=== PATIENT | male | born 1940 | race Caucasian/White ===

== ENCOUNTER → 2018-06-02 11:54 | Outpatient (CLI) | payer MEDICARE, SELFPAY ==
--- NOTE | 2018-06-02 12:23 | RAD_ITS ---
STUDY: X-RAY CHEST REASON FOR EXAM: Male, 78 years old. Chronic shortness of breath. History of smoking. TECHNIQUE: PA and lateral views of the chest. COMPARISON: None. FINDINGS: Hyperinflation. Decreased bronchovascular markings in the right middle lobe and right lower lobe suggestive of a bullous changes. Possible 1.3 cm x 2.1 cm ill-defined nodular density projected over the left first costochondral junction. A repeat lordotic view is recommended. There is no demonstrated pleural abnormality. Normal size heart. Normal mediastinum and juan david. Normal visualized pulmonary arteries. There is atherosclerotic calcification of the aortic arch with tortuosity. There are diffuse degenerative changes of the visualized thoracic spine. Normal visualized ribs, clavicles, and shoulders. There is no demonstrated abnormality of the visualized soft tissue structures of the upper abdomen. RAD/Chest PA and Lateral IMPRESSION: Hyperinflation and emphysematous changes more prominent in the right middle lobe and right lower lobe. Possible nodular density in the left apex as described. A repeat lordotic view is recommended. Electronically Signed: Jose Gordon MD at 13:09 EST Tel [phone], Service support ,
[2018-06-02 15:31] LABS: Color, Urine Yellow (Yellow); Glucose, Dipstick Normal (Normal); Ketone-Dipstick Negative (Negative); Leukocyte Esterase-Dipstick 500 /ul (Negative); Nitrite-Dipstick Positive (Negative); Occult Blood-Urine 10 /ul (Negative); Protein-Dipstick Negative (Negative); Specific Gravity, Urine 1.005 (1.002-1.030); Urine Bilirubin Dipstick Negative (Negative); Urine Clarity Sl. Cloudy (Clear); Urine Urobilinogen Normal (Normal)
[2018-06-02 15:36] LABS: Mucous, Urine 0 SEEN /hpf (<or=2+); Red Blood Cells-Urine 0 SEEN /hpf (0-5); Squamous Epithelial Cells - UA 0 SEEN /hpf (0-5)
[2018-06-02 15:37] LABS: White Blood Cells 10-25 SEEN /hpf (0-5)
[2018-06-02 15:38] LABS: Bacteria 2+ /hpf (None Seen)
[2018-06-02 15:43] LABS: Absolute Lymphocyte Count 2.03 X10^3/ul (0.83-4.51); Absolute Neutrophil Count 6.5 X10^3/uL (2.0-7.7); Basophil# 0.05 X10^3/uL; Basophil% 0.5 % (0-1); Eosinophil# 0.23 X10^3/uL; Eosinophils% 2.4 % (0-5); Hematocrit 46.4 % (40-54); Hemoglobin 15.1 g/dl (13.0-16.5); Lymphocyte # 2.03 X10^3/ul (4.0); Lymphocyte % 21.2 % (19-41); Mean Corp Hgb Conc 32.5 g/gl (32-36); Mean Corpuscular Hgb 31.5 pg (27.0-32.0); Mean Corpuscular Volume 96.7 fL (80-94); Mean Platelet Vol. 11.1 fl (6.2-12.0); Monocyte# 0.69 X10^3/uL; Monocyte% 7.2 % (0-10); Neutrophil # 6.54 X10^3/uL (2.7-7.7); Neutrophil % 68.5 % (47-70); Platelet Count 299 K/mm3 (150-450); RBC Distribution Width CV 13.5 % (11.6-14.6); RBC Distribution Width SD 46.8 fl (35.1-43.9); White Blood Count 9.6 K/mm3 (4.4-11.0)
[2018-06-02 15:46] LABS: POSITIVE COUNT NO; POSITIVE DIFFERENTIAL NO; POSITIVE MORPHOLOGY NO
[2018-06-02 16:05] LABS: Vitamin B12 604 pg/mL (211-911); Vitamin D,25 Hydroxy 28.4 ng/mL (29.95-100.01)
[2018-06-02 16:09] LABS: ALB/GLOB Ratio 1.3 RATIO (0.9-2.4); AST(SGOT) 14 U/L (15-37); Alanine Aminotransfer ALT/SGPT 16 U/L (16-61); Albumin, Serum 4.1 g/dL (3.2-5.0); Alkaline Phosphatase 96 U/L (45-117); Anion Gap 9 (5-15); BUN 11 mg/dL (7-18); BUN/Creat Ratio 12.4 RATIO (10-20); Calcium,Total 8.8 mg/dL (8.5-10.1); Chloride 102 mmol/L (98-107); Creatinine, Serum 0.89 mg/dL (0.70-1.30); EST Glomerular Filtration Rate 88 mL/min (>60); Est Glom Filt Rate - Afr Amer 106 mL/min (>60); Globulin 3.1 g/dL (2.2-4.2); Glucose 83 mg/dL (74-106); Potassium 3.8 mmol/L (3.5-5.1); Protein, Total 7.2 g/dL (6.4-8.2); Sodium Level 142 mmol/L (136-145); Thyroid Stim Hormone (TSH) 2.64 uIU/mL (0.358-3.74)
[2018-06-02 16:21] LABS: BNP,B-Type NATRIURETIC PEPTIDE 15.5 pg/mL (0-100)
--- OUTSIDE RECORDS SUMMARY | 2018-07-28 15:17 | XMS RPT_ITS ---
:1940 External Reference #:[id number] Author Organization [facility] Care Team Providers Name Role Phone Ron Garcia Attending Unavailable Ron Garcia Referring Unavailable Ron Garcia Primary Care Unavailable Ron Garcia Attending Unavailable Ron Garcia Primary Care Unavailable Ron Garcia Referring Unavailable Ron Garcia Attending Unavailable Ron Garcia Referring Unavailable Ron Garcia Primary Care Unavailable PROBLEMS PROBLEMS DATE TYPE CONDITION / CODE ATTENDING STATUS SOURCE 06/21/2018 Unknown N39.0 - Urinary Ron Garcia Active Ron tract infection, Community site not Hospital specified / Repository N39.0(ICD-10) 06/21/2018 Unknown R06.09 - Other Ron Garcia Active Ron forms of dyspnea Community / R06.09(ICD-10) Hospital Repository PROCEDURES PROCEDURES No Procedure Records FoundRESULTS RESULTS CHEST WITHOUT Observed: 06/18/2018 Status: F Source: [place] CONTRAST 8:43 AM [facility] REPOSITORY [facility] Imaging Services [address] [place] [address] Chest without Contrast MR#: [id number] Acct: [id number] Name: DARRION BERG Rep #: [id number] : 1940 M 78 From: Alfredo Summers MD PCP: Ron Garcia MD Status: REG CLI Study: Chest without Contrast Date of Exam: 06/18/18 Exam# [id number] Ordering Dr: Ron Garcia MD STUDY: CT CHEST WITHOUT CONTRAST REASON FOR EXAM: Male, 78 years old. Lung nodule detected in the left apex on chest x-ray of 06/02/2018 RADIATION DOSAGE (If Supplied By Facility): CTDIvol = ( 11.37 ) mGy, DLP = ( 431.79 ) mGycm TECHNIQUE: Transaxial imaging was performed without the administration of intravenous contrast material. Multiplanar coronal and sagittal images were reformatted. Individualized dose optimization techniques were used for this CT. COMPARISON: 06/02/2018 FINDINGS: The 2.1 cm nodular density projecting in the left upper lung field on prior study correlates to degenerative costochondral sclerosis of the anterior first rib. Well-defined, round noncalcified nodule along the lateral left upper lobe on image 41 measures 4 mm. Triangular subpleural fibrotic reaction of the left anterior upper lobe on image 58 also demonstrated measuring 3 mm. There are mild fibrotic bands involving the bilateral lower lobes and right middle lobe. No airspace consolidation. No endobronchial lesions. There is no demonstrated pleural abnormality. Normal heart and pericardium. There are calcifications of the coronary arteries. Normal mediastinum. Normal hilar regions. Normal unenhanced pulmonary arteries. There is atherosclerotic calcification of the aortic arch with tortuosity and elongation of the aortic arch and descending thoracic aorta. Diffuse aneurysmal enlargement of the ascending thoracic aorta measures 4.4 x 4.3 cm. There are multi-level degenerative changes of the thoracic spine. There is no demonstrated abnormality of the visualized upper abdomen. CT/Chest without Contrast IMPRESSION: 1. Rib artifact/degenerative changes accounts for nodular density on prior chest x-ray in the left upper lobe. 2. 4 mm nodule in the lateral left upper lobe. Follow-up chest CT in one year recommended if no comparison studies are available to document long-term stability. 3. Aneurysmal enlargement of the ascending thoracic aorta measuring up to 4.4 cm in axial dimension. 4. Atherosclerosis including coronary arteries. Electronically Signed: Alfredo Summers MD at 9:19 EST , Service support , CC: Ron Garcia MD Store Operations Specialist: Signed POST VOID RESIDUAL Observed: 06/09/2018 Status: F Source: [place] BLADDER 7:55 AM [facility] REPOSITORY [facility] Imaging Services [address] [place] [address] Post Void Residual Bladder MR#: [id number] Acct: [id number] Name: DARRION BERG Rep #: [id number] : 1940 M 78 From: Bryce Wade MD PCP: Ron Garcia MD Status: REG CLI Study: Post Void Residual Bladder Date of Exam: 06/09/18 Exam# [id number] Ordering Dr: Ron Garcia MD STUDY: ULTRASOUND - URINARY BLADDER REASON FOR EXAM: Male, 78 years old. Incomplete emptying. TECHNIQUE: Ultrasound evaluation of the urinary bladder was performed with real-time and static arrington-scale imaging. COMPARISON: None. FINDINGS: There is no right UVJ calculus. There is a visualized right ureteral jet. There is no left UVJ calculus. There is a visualized left ureteral jet. The distended volume of the urinary bladder is 314.03 ml. The empty volume of the urinary bladder is 189.24 ml. The bladder wall is thickened with an irregular margin indicating internal trabeculation. The bladder wall measures 3 mm. There is no demonstrated bladder wall mass lesion. There are no demonstrated bladder calculi. US/Post Void Residual Bladder IMPRESSION: 1. Thickened, trabeculated bladder wall. 2. Incomplete bladder emptying with 189 mL postvoid residual. Electronically Signed: Donovan Wade MD at 19:47 EST , Service support , CC: Ron Garcia MD Store Operations Specialist: Signed CHEST PA AND LATERAL Observed: 06/02/2018 Status: F Source: [place] 12:23 PM [facility] REPOSITORY [facility] [place] [address] Chest PA and Lateral MR#: [id number] Acct: [id number] Name: DARRION BERG Rep #: [id number] : 1940 M 78 From: Jose Gordon MD PCP: Ron Garcia MD Status: REG CLI Study: Chest PA and Lateral Date of Exam: 06/02/18 Exam# [id number] Ordering Dr: Ron Garcia MD STUDY: X-RAY CHEST REASON FOR EXAM: Male, 78 years old. Chronic shortness of breath. History of smoking. TECHNIQUE: PA and lateral views of the chest. COMPARISON: None. FINDINGS: Hyperinflation. Decreased bronchovascular markings in the right middle lobe and right lower lobe suggestive of a bullous changes. Possible 1.3 cm x 2.1 cm ill-defined nodular density projected over the left first costochondral junction. A repeat lordotic view is recommended. There is no demonstrated pleural abnormality. Normal size heart. Normal mediastinum and juan david. Normal visualized pulmonary arteries. There is atherosclerotic calcification of the aortic arch with tortuosity. There are diffuse degenerative changes of the visualized thoracic spine. Normal visualized ribs, clavicles, and shoulders. There is no demonstrated abnormality of the visualized soft tissue structures of the upper abdomen. RAD/Chest PA and Lateral IMPRESSION: Hyperinflation and emphysematous changes more prominent in the right middle lobe and right lower lobe. Possible nodular density in the left apex as described. A repeat lordotic view is recommended. Electronically Signed: Jose Gordon MD at 13:09 EST Tel [phone], Service support , CC: Ron Garcia MD Store Operations Specialist: Signed URINALYSIS, COMPLETE Collected: 06/02/2018 Status: F Source: [place] 11:59 AM [facility] REPOSITORY Order Comment: How was Urine Obtained? [employer]UM[employer]ANT SUPERVISOR TO SPECIFY TYPE CODE TESTS RESULT OUT OF RANGE REFERENCE UNITS LAB L400.3000 Yellow COLOR Normal Yellow LAB L400.3050 Clear Normal CLARITY Sl. Cloudy LAB L400.3200 Normal mg/dl Normal GLUCOSE, UR Normal LAB L400.3300 Negative mg/dL Normal BILIRUBIN URINE Negative LAB L400.3400 Negative mg/dl Normal KETONE UR Negative LAB L400.3465 1.002-1.030 Normal SP.GR. DIPSTX 1.005 LAB L400.3550 5.0 - 8.0 pH UR Normal 7.0 LAB L400.3600 Negative mg/dl PROT Normal DIPSTX Negative LAB L400.3700 Normal mg/dl Normal UROBILI Normal LAB L400.3750 Negative High NITRITE UR Positive LAB L400.3780 Negative /ul High 10 OCCULT BLOOD-UR LAB L400.3800 Negative /ul High LEUK ESTERASE 500 LAB L400.4050 0-5 /hpf WBC Normal 10-25 SEEN LAB L400.4100 0-5 /hpf 0 Normal RBC-UA SEEN LAB L400.4150 0-5 /hpf SQUAM 0 Normal EPI SEEN LAB L400.4300 None Seen /hpf 2+ Normal BACTERIA LAB L400.4350 <or=2+ /hpf 0 Normal MUCUS, URINE SEEN Performed By: #### L400.0001, L100.0100, L503.0105, L506.1000, L500.4050, L501.9520, L501.9910 #### [facility] [address] [place], [address] CBC W/DIFF, AUTOMATED Collected: 06/02/2018 Status: F Source: [place] 11:59 AM [facility] REPOSITORY TYPE CODE TESTS RESULT OUT OF RANGE REFERENCE UNITS LAB L100.1000 4.4-11.0 K/mm3 Normal WBC 9.6 LAB L100.1200 4.6-6.2 M/mm3 Normal RBC 4.80 LAB L100.1300 13.0-16.5 g/dl Normal HGB 15.1 LAB L100.1400 40-54 % Normal HCT 46.4 LAB L100.1500 80-94 fL High MCV 96.7 LAB L100.1600 27.0-32.0 pg Normal MCH 31.5 LAB L100.1700 32-36 g/gl Normal MCHC 32.5 LAB L100.1810 11.6-14.6 % Normal RDW CV 13.5 LAB L100.1820 35.1-43.9 fl High RDW SD 46.8 LAB L100.1900 150-450 K/mm3 Normal PLT 299 LAB L100.2000 6.2-12.0 fl Normal MPV 11.1 LAB L100.2100 47-70 % Normal NEUT% 68.5 LAB L100.2200 19-41 % Normal LY% 21.2 LAB L100.2300 0-10 % Normal MONO% 7.2 LAB L100.2400 0-5 % Normal EO% 2.4 LAB L100.2500 0-1 % Normal BASO% 0.5 LAB L100.2550 0.0-0.9 % Normal IM GRAN % 0.200 Result Comment: IG% - Immature Granulocytes (promyelocytes, myelocytes and metamyelocytes) > 1% indicates that a LEFT SHIFT is Present. LAB L100.2620 2.0-7.7 X10 3/uL Normal Absolute Neut 6.5 LAB L100.2720 0.83-4.51 X10 3/ul Normal Absolute Lymph 2.03 Performed By: #### L400.0001, L100.0100, L503.0105, L506.1000, L500.4050, L501.9520, L501.9910 #### [facility] [address] [place], [address] VITAMIN B12 Collected: 06/02/2018 Status: F Source: [place] 11:59 AM [facility] REPOSITORY TYPE CODE TESTS RESULT OUT OF RANGE REFERENCE UNITS LAB L503.0105 211-911 pg/mL Normal Vitamin B12 604 Performed By: #### L400.0001, L100.0100, L503.0105, L506.1000, L500.4050, L501.9520, L501.9910 #### [facility] [address] [place], [address] VITAMIN D,25 HYDROXY Collected: 06/02/2018 Status: F Source: [place] 11:59 AM [facility] REPOSITORY TYPE CODE TESTS RESULT OUT OF REFERENCE UNITS RANGE LAB L506.1000 29.95-100.01 ng/mL Low Vitamin D 28.4 25-OH Result Comment: Vitamin D 25(OH) Status Range Deficiency <20 ng/mL (50nmol/L) Insuffciency 20 - 30 ng/mL (50 - 75 nmol/L) Sufficiency 30 - 100 ng/mL (75 - 250 nmol/L) Toxicity >100 ng/mL (>250 nmol/L) Performed By: #### L400.0001, L100.0100, L503.0105, L506.1000, L500.4050, L501.9520, L501.9910 #### [facility] [address] [place], [address] COMPREHENSIVE METABOLIC Collected: 06/02/2018 Status: F Source: RON [facility] 11:59 AM [facility] REPOSITORY TYPE CODE TESTS RESULT OUT OF RANGE REFERENCE UNITS LAB L501.0100 74-106 mg/dL Normal GLU 83 Result Comment: Please note revised GLUCOSE reference range effective 2017. LAB L501.1000 7-18 mg/dL Normal BUN 11 LAB L501.1100 0.70-1.30 mg/dL Normal CREAT,SERUM 0.89 Result Comment: The validity of the calculated GFR AND GFRAA in patients over 70 years has not been determined. Clinical correlation is essential. LAB L501.1110 >60 mL/min Normal EST GFR 88 Result Comment: Non- GFR Calc LAB L501.1115 >60 mL/min Normal EST GFR - AA 106 Result Comment: GFR Calc LAB L501.1300 10-20 RATIO Normal BUN/CRE 12.4 LAB L501.1500 6.4-8.2 g/dL T Normal PROT 7.2 LAB L501.1800 3.2-5.0 g/dL Normal ALB 4.1 LAB L501.1950 2.2-4.2 g/dL Normal GLOB 3.1 LAB L501.2000 0.9-2.4 RATIO Normal A/G 1.3 LAB L501.2200 8.5-10.1 mg/dL CA Normal 8.8 LAB L501.4100 15-37 U/L Low AST 14 LAB L501.4305 45-117 U/L Normal ALK P 96 LAB L501.4405 16-61 U/L Normal ALT 16 LAB L501.4600 0.20-1.00 mg/dL T Normal BILI 0.50 LAB L501.5300 136-145 mmol/L NA Normal 142 LAB L501.5600 3.5-5.1 mmol/L K Normal 3.8 LAB L501.5900 98-107 mmol/L CL Normal 102 LAB L501.6100 21.0-32.0 mmol/L Normal CO2 31.0 LAB L501.6200 5-15 Normal GAP 9 Performed By: #### L400.0001, L100.0100, L503.0105, L506.1000, L500.4050, L501.9520, L501.9910 #### [facility] [address] [facility] [place], [address] THYROID STIM HORMONE Collected: 06/02/2018 Status: F Source: [place] ([facility]) 11:59 AM [facility] REPOSITORY TYPE CODE TESTS RESULT OUT OF RANGE REFERENCE UNITS LAB L501.9520 0.358-3.74 uIU/mL Normal TSH 2.64 Performed By: #### L400.0001, L100.0100, L503.0105, L506.1000, L500.4050, L501.9520, L501.9910 #### [facility] [address] [facility] [place], [place], [address] PSA,TOTAL - ANNUAL Collected: 06/02/2018 Status: F Source: [place] SCREEN 11:59 AM [facility] REPOSITORY TYPE CODE TESTS RESULT OUT OF RANGE REFERENCE UNITS LAB L501.9910 0.00-4.00 ng/mL Normal PSA,TOT 1.60 SCREEN Result Comment: This test was performed using the TPSA assay method for the [employer] chemistry system. Values obtained with different assay methods cannot be used interchangably. When changing PSA assays in the course of monitoring a patient, additional sequential testing should be carried out to confirm baseline values. Performed By: #### L400.0001, L100.0100, L503.0105, L506.1000, L500.4050, L501.9520, L501.9910 #### [facility] [address] [place], [address] BNP,B-TYPE NATRIURETIC Collected: 06/02/2018 Status: F Source: [place] PEPTIDE 11:59 AM [facility] REPOSITORY TYPE CODE TESTS RESULT OUT OF RANGE REFERENCE UNITS LAB L503.6620 0-100 pg/mL Normal B-TYPE 15.5 DANIEL PEP Performed By: #### L503.6620 #### [facility] [address] [facility] [place], [address] Observed: 06/02/2018 Status: F Source: [place] CULTURE, URINE 11:59 AM [facility] REPOSITORY Urine Culture ORGANISM 1: Presumptive E. coli Sunset Count >100,000 Presumptive E. coli: REACTION Amoxacillin/Clavulanic Acid $ <=2 S Ampicillin $ <=2 S Ampicillin/Sulbactam $ <=2 S Cefazolin $ <=4 S Cefepime $ <=1 S Ceftriaxone $ <=1 S Ciprofloxacin $ <=0.25 S ESBL - Ertapenim $$$ <=0.5 S Gentamicin $ <=1 S Imipenem *NF <=0.25 S Levofloxacin $ <=0.12 S Nitrofurantoin $ <=16 S Piperacillin/Tazobactam $$ <=4 S Tobramycin $ <=1 S Trimethoprim/Sulfametho $ <=20 S (NF) indicates non-formulary drug at [facility]. Approval by Infectious Disease Specialist required before non-formulary drugs may be ordered and/or dispensed. Performed By: #### M100.0650 #### [facility] [address], [address] ALLERGIES ALLERGIES No Allergies Records FoundENCOUNTERS ENCOUNTERS ADMIT/DISCHARGE ACCOUNT ADMITTING ENCOUNTER LOCATION SOURCE NUMBER CLASS 06/18/2018 [id number] Ambulatory [address] ing:CT Repository 06/09/2018 [id number] Ambulatory [place] [facility] ing:[place] Repository 06/02/2018 [id number] Ambulatory [place] Ron [facility] ing:MFPLAB Repository PAYERS PAYERS ENCOUNTER GUARANTOR PAYER SUBSCRIBER SOURCE 06/18/2018 DARRION Darrion [id number] Primary DARRION G LOWEDOB: [place] Insurance:HUMANA [id number] [facility] [address]Tel: [phone]) Number: Repository [phone] () [id number] Date:[id number] [address] [address]WN: 06/18/2018 Secondary NOT GIVENUNK [place] Insurance:SELF PAY [facility] Number: Effective Repository Date:2018-06-13 06/09/2018 DARRION G [id number] Primary DARRION G LOWEDOB: [place] Insurance:HUMANA [id number] [place] [facility] [address]Tel: [phone]) Number: Repository [phone] () [id number] Date:[id number] [address] [address]VC: 06/09/2018 Secondary NOT GIVENUNK [place] Insurance:SELF PAY [facility] Number: Effective Repository Date:2018-06-03 06/02/2018 DARRION G [id number] Primary DARRION G LOWEDOB: [place] Insurance:HUMANA [id number] [place] [facility] [address]Tel: [phone]) Number: Repository [phone] () [id number] Date:[id number] [address] [address]LI: 06/02/2018 Secondary NOT GIVENUNK [place] Insurance:SELF PAY [facility] Number: Effective Repository Date:2018-06-02
== END ==
PROVIDERS: Family Provider Family Medicine; PCP Family Medicine; Referring Provider Family Medicine; Visit Provider Family Medicine
DX: N39.0 Urinary tract infection, site not specified (principal); R06.09 Other forms of dyspnea; N40.1 Benign prostatic hyperplasia with lower urinary tract symptoms; R53.83 Other fatigue; Z12.5 Encounter for screening for malignant neoplasm of prostate; R06.02 Shortness of breath; E55.9 Vitamin D deficiency, unspecified
CPT/HCPCS: 71046; 80053; 81001; 82306; 82607; 83880; 84153; 84443; 85025; 87086; 87088; 87186; G0103

== ENCOUNTER → 2018-06-09 07:52 | Outpatient (CLI) | payer MEDICARE, SELFPAY ==
--- NOTE | 2018-06-09 07:55 | US_ITS ---
STUDY: ULTRASOUND - URINARY BLADDER REASON FOR EXAM: Male, 78 years old. Incomplete emptying. TECHNIQUE: Ultrasound evaluation of the urinary bladder was performed with real-time and static arrington-scale imaging. COMPARISON: None. FINDINGS: There is no right UVJ calculus. There is a visualized right ureteral jet. There is no left UVJ calculus. There is a visualized left ureteral jet. The distended volume of the urinary bladder is 314.03 ml. The empty volume of the urinary bladder is 189.24 ml. The bladder wall is thickened with an irregular margin indicating internal trabeculation. The bladder wall measures 3 mm. There is no demonstrated bladder wall mass lesion. There are no demonstrated bladder calculi. US/Post Void Residual Bladder IMPRESSION: 1. Thickened, trabeculated bladder wall. 2. Incomplete bladder emptying with 189 mL postvoid residual. Electronically Signed: Donovan Wade MD at 19:47 EST , Service support ,
== END ==
PROVIDERS: Family Provider Family Medicine; PCP Family Medicine; Referring Provider Family Medicine; Visit Provider Family Medicine
DX: R33.9 Retention of urine, unspecified (principal)
CPT/HCPCS: 51798

== ENCOUNTER → 2018-06-18 08:33 | Outpatient (CLI) | payer MEDICARE, SELFPAY ==
--- NOTE | 2018-06-18 08:43 | CT_ITS ---
STUDY: CT CHEST WITHOUT CONTRAST REASON FOR EXAM: Male, 78 years old. Lung nodule detected in the left apex on chest x-ray of 06/02/2018 RADIATION DOSAGE (If Supplied By Facility): CTDIvol = ( 11.37 ) mGy, DLP = ( 431.79 ) mGycm TECHNIQUE: Transaxial imaging was performed without the administration of intravenous contrast material. Multiplanar coronal and sagittal images were reformatted. Individualized dose optimization techniques were used for this CT. COMPARISON: 06/02/2018 FINDINGS: The 2.1 cm nodular density projecting in the left upper lung field on prior study correlates to degenerative costochondral sclerosis of the anterior first rib. Well-defined, round noncalcified nodule along the lateral left upper lobe on image 41 measures 4 mm. Triangular subpleural fibrotic reaction of the left anterior upper lobe on image 58 also demonstrated measuring 3 mm. There are mild fibrotic bands involving the bilateral lower lobes and right middle lobe. No airspace consolidation. No endobronchial lesions. There is no demonstrated pleural abnormality. Normal heart and pericardium. There are calcifications of the coronary arteries. Normal mediastinum. Normal hilar regions. Normal unenhanced pulmonary arteries. There is atherosclerotic calcification of the aortic arch with tortuosity and elongation of the aortic arch and descending thoracic aorta. Diffuse aneurysmal enlargement of the ascending thoracic aorta measures 4.4 x 4.3 cm. There are multi-level degenerative changes of the thoracic spine. There is no demonstrated abnormality of the visualized upper abdomen. CT/Chest without Contrast IMPRESSION: 1. Rib artifact/degenerative changes accounts for nodular density on prior chest x-ray in the left upper lobe. 2. 4 mm nodule in the lateral left upper lobe. Follow-up chest CT in one year recommended if no comparison studies are available to document long-term stability. 3. Aneurysmal enlargement of the ascending thoracic aorta measuring up to 4.4 cm in axial dimension. 4. Atherosclerosis including coronary arteries. Electronically Signed: Alfredo Summers MD at 9:19 EST , Service support ,
--- OUTSIDE RECORDS SUMMARY | 2018-09-21 08:57 | XMS RPT_ITS ---
[...] Status: F Source: RON CONTRAST 8:43 AM [facility] [address] [place] [address] Chest without Contrast MR#: [id number] Acct: [id number] Name: DARRION BERG Rep #: [id number] : 1940 M 78 From: Alfredo Sumemrs MD PCP: Ron Garcia MD Status: REG CLI Study: Chest without Contrast Date of Exam: 06/18/18 Exam# [id number] Ordering Dr: Ron Garcia MD STUDY: CT [...] Service support , CC: Ron Garcia MD Pickling Operator: Signed POST VOID RESIDUAL Observed: 06/09/2018 Status: F Source: RON BLADDER 7:55 AM [facility] [address] [place] [address] Post Void Residual Bladder MR#: [id number] Acct: [id number] Name: DARRION BERG Rep #: [id number] : 1940 M 78 From: Bryce Wade MD PCP: Ron Garcia MD Status: REG CLI Study: Post Void Residual Bladder Date of Exam: 06/09/18 Exam# [id number] Ordering Dr: Ron Garcia MD STUDY: ULTRASOUND [...] Service support , CC: Ron Garcia MD Pickling Operator: Signed CHEST PA AND LATERAL Observed: 06/02/2018 Status: F Source: [place] 12:23 PM [facility] [place] [address] Chest PA and Lateral MR#: [id number] Acct: [id number] Name: DARRION BERG Rep #: [id number] : 1940 M 78 From: Jose Gordon MD PCP: Ron Garcia MD Status: REG CLI Study: Chest PA and Lateral Date of Exam: 06/02/18 Exam# [id number] Ordering Dr: Ron Garcia MD STUDY: X-RAY [...] Jose Gordon MD at 13:09 EST Tel [phone], Service support , CC: Rno Garcia MD Pickling Operator: Signed URINALYSIS, COMPLETE Collected: 06/02/2018 Status: F Source: [place] 11:59 AM [facility] Order Comment: How was Urine Obtained? DUST HANDLER TO SPECIFY TYPE CODE TESTS RESULT OUT [...] L100.0100, L503.0105, L506.1000, L500.4050, L501.9520, L501.9910 #### [facility] [address] [place], [address] CBC W/DIFF, AUTOMATED Collected: 06/02/2018 Status: F Source: [place] 11:59 AM [facility] TYPE CODE TESTS RESULT OUT OF [...] L100.0100, L503.0105, L506.1000, L500.4050, L501.9520, L501.9910 #### [facility] [address] [place], [address] VITAMIN B12 Collected: 06/02/2018 Status: F Source: [place] 11:59 AM [facility] TYPE CODE TESTS RESULT OUT OF RANGE REFERENCE UNITS LAB L503.0105 211-911 pg/mL Normal Vitamin B12 604 Performed By: #### L400.0001, L100.0100, L503.0105, L506.1000, L500.4050, L501.9520, L501.9910 #### [facility] [address] [place], [address] VITAMIN D,25 HYDROXY Collected: 06/02/2018 Status: F Source: [place] 11:59 AM [facility] TYPE CODE TESTS RESULT OUT OF [...] L100.0100, L503.0105, L506.1000, L500.4050, L501.9520, L501.9910 #### [facility] [address] [place], [address] COMPREHENSIVE METABOLIC Collected: 06/02/2018 Status: F Source: RON [facility] 11:59 AM [facility] TYPE CODE TESTS RESULT OUT OF [...] L100.0100, L503.0105, L506.1000, L500.4050, L501.9520, L501.9910 #### [facility] [address] [place], [address] THYROID STIM HORMONE Collected: 06/02/2018 Status: F Source: [place] (TSH) 11:59 AM [facility] TYPE CODE TESTS RESULT OUT OF RANGE REFERENCE UNITS LAB L501.9520 0.358-3.74 uIU/mL Normal TSH 2.64 Performed By: #### L400.0001, L100.0100, L503.0105, L506.1000, L500.4050, L501.9520, L501.9910 #### [facility] [address] [facility] [place], [place], [address] PSA,TOTAL - ANNUAL Collected: 06/02/2018 Status: F Source: [place] SCREEN 11:59 AM [facility] TYPE CODE TESTS RESULT OUT OF RANGE REFERENCE UNITS LAB L501.9910 0.00-4.00 ng/mL Normal PSA,TOT 1.60 SCREEN Result Comment: This test was performed using the TPSA assay method for the streamOnce chemistry system. Values obtained with different assay methods cannot be used interchangably. When changing PSA assays in the course of monitoring a patient, additional sequential testing should be carried out to confirm baseline values. Performed By: #### L400.0001, L100.0100, L503.0105, L506.1000, L500.4050, L501.9520, L501.9910 #### [facility] [address] [place], [address] BNP,B-TYPE NATRIURETIC Collected: 06/02/2018 Status: F Source: [place] PEPTIDE 11:59 AM [facility] TYPE CODE TESTS RESULT OUT OF RANGE REFERENCE UNITS LAB L503.6620 0-100 pg/mL Normal B-TYPE 15.5 [place] PEP Performed By: #### L503.6620 #### [facility] [address] [place], [address] Observed: 06/02/2018 Status: F Source: [place] CULTURE, URINE 11:59 AM [facility] Urine Culture ORGANISM 1: Presumptive E. coli [place] Count >100,000 Presumptive E. coli: REACTION Amoxacillin/Clavulanic [...] <=20 S (NF) indicates non-formulary drug at [facility]. Approval by Infectious Disease Specialist required before non-formulary drugs may be ordered and/or dispensed. Performed By: #### M100.0650 #### [facility] [address] [place], [address] ALLERGIES ALLERGIES No Allergies Records FoundENCOUNTERS ENCOUNTERS ADMIT/DISCHARGE ACCOUNT ADMITTING ENCOUNTER LOCATION SOURCE NUMBER CLASS 06/18/2018 [id number] Ambulatory [address] ing:CT Repository 06/09/2018 [id number] Ambulatory Ron Ron [facility] ing:[place] Repository 06/02/2018 [id number] Ambulatory [place] [facility] ing:MFPLAB Repository PAYERS PAYERS ENCOUNTER GUARANTOR PAYER SUBSCRIBER SOURCE 06/18/2018 DARRION Darrion [id number] Primary DARRION G LOWEDOB: Ron [place] Insurance:[employer] [id number] [place] [facility] [address]Tel: [phone]) Number: Repository [phone] () [id number] Date:2826-05-72BK [address] [address]OW: 06/18/2018 Secondary NOT GIVENUNK Ron Insurance:SELF PAY [facility] Number: Effective Repository Date:2018-06-13 06/09/2018 DARRION G [id number] Primary DARRION G LOWEDOB: Ron [place] Insurance:HUMANA [id number] [place] [facility] [address]Tel: [phone]) Number: Repository [phone] () [id number] Date:6640-80-17QP [address] [address]VL: 06/09/2018 Secondary NOT GIVENUNK [place] Insurance:SELF PAY [facility] Number: Effective Repository Date:2018-06-03 06/02/2018 DARRION G [id number] Primary DARRION G LOWEDOB: [place] Insurance:HUMANA [id number] [place] [facility] [address]Tel: [phone]) Number: Repository [phone] () [id number] Date:5631-19-50RX [address] [address]ZQ: 06/02/2018 Secondary NOT GIVENUNK [place] Insurance:SELF PAY [facility] Number: Effective Repository Date:2018-06-02
== END ==
PROVIDERS: Family Provider Family Medicine; PCP Family Medicine; Referring Provider Family Medicine; Visit Provider Family Medicine
DX: R91.1 Solitary pulmonary nodule (principal); I71.2 Thoracic aortic aneurysm, without rupture; I25.10 Atherosclerotic heart disease of native coronary artery without angina pectoris
CPT/HCPCS: 71250

== ENCOUNTER → 2018-10-03 11:46 | Outpatient (CLI) | payer MEDICARE, SELFPAY ==
--- NOTE | 2018-10-03 11:50 | US_ITS ---
STUDY: RENAL ULTRASOUND - COMPLETE REASON FOR EXAM: Male, 78 years old. Urinary retention. TECHNIQUE: Ultrasound evaluation of the kidneys was performed with real-time and static romero-scale imaging. COMPARISON: None. FINDINGS: RIGHT KIDNEY: Normal location of the right kidney, which is normal in size. The right kidney measures 10.2 cm x 5.3 cm x 3.7 cm. There is a normal cortex of the right kidney. The renal cortex measures 1.5 cm. There is no right renal mass or cyst. There are no right renal calculi. There is no right hydronephrosis. DISTAL RIGHT URETER: There is non-visualization of the distal right ureter. There is no demonstrated right ureterovesical junction calculus. There is a visualized right ureteral jet. LEFT KIDNEY: Normal location of the left kidney, which is normal in size. The left kidney measures 10.5 cm x 4.2 cm x 5.6 cm. There is a normal cortex of the left kidney. The renal cortex measures 1.4 cm. There is no left renal mass or cyst. There are no left renal calculi. There is no left hydronephrosis. DISTAL LEFT URETER: There is non-visualization of the distal left ureter. There is no demonstrated left ureterovesical junction calculus. There is a visualized left ureteral jet. BLADDER: The distended urinary bladder has a volume of 607 ml. The empty urinary bladder has a volume of 247 ml. There is a normal wall thickness of the distended urinary bladder. There is no demonstrated mass within the urinary bladder. There are no demonstrated bladder calculi. US/Kidney and Bladder IMPRESSION: Normal ultrasound of the kidneys. Moderate post void residual. Electronically Signed: Jose Gordon, at 9:53 EDT , Service support ,
== END ==
PROVIDERS: Family Provider Family Medicine; PCP Family Medicine; Referring Provider Family Medicine; Visit Provider Family Medicine
DX: R33.9 Retention of urine, unspecified (principal)
CPT/HCPCS: 76770

== ENCOUNTER → 2018-10-05 08:39 | Outpatient (CLI) | payer MEDICARE, SELFPAY ==
[2018-10-05 10:19] LABS: Vitamin D,25 Hydroxy 54.8 ng/mL (29.95-100.01)
== END ==
PROVIDERS: Family Provider Family Medicine; PCP Family Medicine; Referring Provider Family Medicine; Visit Provider Family Medicine
DX: E55.9 Vitamin D deficiency, unspecified (principal)
CPT/HCPCS: 36415; 82306

== ENCOUNTER → 2018-11-30 10:12 | Outpatient (CLI) | payer MEDICARE, SELFPAY ==
[2018-11-30 13:19] LABS: Anion Gap 6 (5-15); BUN 12 mg/dL (7-18); BUN/Creat Ratio 12.2 RATIO (10-20); CPK Total, Creatine Kinase 80 U/L (39-308); Calcium,Total 8.7 mg/dL (8.5-10.1); Chloride 106 mmol/L (98-107); Creatinine, Serum 0.98 mg/dL (0.70-1.30); EST Glomerular Filtration Rate 78 mL/min (>60); Est Glom Filt Rate - Afr Amer 95 mL/min (>60); Ferritin 103 ng/mL (26-388); Glucose 89 mg/dL (74-106); Magnesium 1.9 mg/dL (1.6-2.6); Potassium 4.2 mmol/L (3.5-5.1); Sodium Level 143 mmol/L (136-145)
== END ==
PROVIDERS: Family Provider Family Medicine; PCP Family Medicine; Referring Provider Family Medicine; Visit Provider Family Medicine
DX: R25.2 Cramp and spasm (principal)
CPT/HCPCS: 36415; 80048; 82550; 82728; 83735

== ENCOUNTER → 2018-12-21 07:11 | Outpatient (CLI) | payer MEDICARE, SELFPAY ==
--- NOTE | 2018-12-21 07:17 | CT_ITS ---
STUDY: CT CHEST WITHOUT CONTRAST REASON FOR EXAM: Male, 78 years old. Follow-up of lung nodule RADIATION DOSAGE (If Supplied By Facility): CTDIvol = ( 11.94 ) mGy, DLP = ( 441.43 ) mGycm TECHNIQUE: Transaxial imaging was performed without the administration of intravenous contrast material. Individualized dose optimization techniques were used for this CT. COMPARISON: Previous study of 06/18/2018 FINDINGS: There are mild emphysematous changes of the upper lobes. There is a stable 4 mm nodule of the lateral left upper lobe image 39 series 301. There are linear fibrotic changes of the lower lobes and right middle lobe. There is no demonstrated pleural abnormality. Normal heart and pericardium. Normal mediastinum. Hilar areas are difficult to assess on this noncontrast study. There is no obvious hilar mass or adenopathy. Normal unenhanced pulmonary arteries. The ascending thoracic aorta is mildly aneurysmal, measuring up to 4.2 cm in diameter. The thoracic aorta at the level of the aortic root measures 3.9 cm in diameter. There is mild endplate spondylosis of the thoracic spine. There is no demonstrated abnormality of the visualized upper abdomen. CT/Chest without Contrast IMPRESSION: Aneurysmal dilatation of the ascending thoracic aorta measuring up to 4.2 cm. Mild emphysematous changes of the upper lobes. Stable 4 mm nodule of the lateral left upper lobe. Linear fibrotic changes of the lower lobes and right middle lobe. Electronically Signed: Sly Mohan MD at 17:19 EDT , Service support ,
== END ==
PROVIDERS: Family Provider Family Medicine; PCP Family Medicine; Referring Provider Family Medicine; Visit Provider Family Medicine
DX: R91.1 Solitary pulmonary nodule (principal)
CPT/HCPCS: 71250

== ENCOUNTER → 2018-12-29 14:16 | Outpatient (CLI) | payer MEDICARE, SELFPAY ==
--- NOTE | 2018-12-29 14:21 | VDLE_ITS ---
Reason For Study: edema RIGHT LEFT GSV is normal. GSV is normal. CFV is compressible, spontaneous, phasic, CFV is compressible, spontaneous, phasic, competent and demonstrates normal competent, and demonstrates normal augmentation. augmentation. FV is compressible, spontaneous, phasic, FV is compressible, spontaneous, phasic, competent and demonstrates normal competent and demonstrates normal augmentation. augmentation. POP V is compressible, spontaneous, phasic, POP V is compressible, spontaneous, phasic, competent and demonstrates normal competent and demonstrates normal augmentation. augmentation. T/P Trunk is compressible. T/P Trunk is compressible. PTV is compressible. PTV is compressible. RT PerV is compressible. LT PerV is compressible. Procedure Exam performed in department. The exam was diagnostic. A preliminary report was called and/or faxed to Dr. Garcia. Interpretation Summary Deep veins of the lower extremities are bilaterally patent and compressible segmentally. There is no evidence of deep vein thrombosis on either side. Valvular competence appears intact within the proximal deep venous systems bilaterally. The greater saphenous veins appear bilaterally patent and compressible segmentally. Ordering Physician: Ron Garcia Performed By: Zach Cano RVT
== END ==
PROVIDERS: Family Provider Family Medicine; PCP Family Medicine; Referring Provider Family Medicine; Visit Provider Family Medicine
DX: R60.0 Localized edema (principal)
CPT/HCPCS: 93970

== ENCOUNTER → 2019-02-08 | Outpatient (CLI) | payer MEDICARE, SELFPAY ==
--- NOTE | 2019-02-08 13:15 | PR.HP_ITS ---
History of Present Illness Arrival date:: 02/08/19 Arrival time:: 12:55 Date of Referral:: 01/20/19 Date of Evaluation: 02/08/19 Referring Physician: DR MAUREEN AHUJA Primary Diagnosis: COPD GOLD III History of Present Illness: Pt was diagnosed with COPD in 2017. He was placed on oxygen about 6 months ago d/t hypoxia. 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 mMRC Breathless Scale: When is the patient short of breath? Y/N Grade: Description of Breathlessness: n 0 I only get breathless with strenuous exercise. y 1 I get short of breath when hurrying on level ground or walking up a slight hill. y 2 On level ground, I walk slower than people of the same age because of breathless, or have to stop for breath when walking at my own pace. y 3 I stop for breath after walking 100 yards or after a few minutes on level ground. n 4 I am too breathless to leave the house or I am breathless when dressing. Respiratory Problems: Yes: Dizziness, Ankle Swelling, Dyspnea with Activity - Secretions Normal Color:: yellow Thick:: Yes Amount/Day:: once every 2 weeks Cough:: No AM: No PM: No Night Time: No A.T.C.: No Hx of Sleep Apnea: No Do you snore loudly (louder than talking or can be heard through closed doors)?: Yes Do you often feel tired/ fatigued/ sleepy during daytime?: No Has anyone observed you stop breathing during sleep?: No History of Hypertension (for STOP score): No STOP Results: Negative Medical Utilization Do you use a spacer device with your inhalers?: No Number of hospital visits in the last year?: 0 Number of emergency room visits in the last year?: 0 Do you see your physician on a regular schedule?: Yes How often?: every 3 months Advanced Directives - Advanced Directives Power of Medical Technologist Prn: No Living Will: No Advance Directives Information Provided: No Advance Directives on File: No DNR Order?:: No - MOLST See MOLST form: No Past Medical History Medical History: Past Medical History (Last Updated 02/08/19 @ 15:12 by Eliza Frausto, BUSINESS SUPPORT LIAISON) Allergic rhinitis J30.9 BPH w urinary obs/LUTS N40.1, N13.8 History of tobacco use Z87.891 Lung nodule < 6cm on CT R91.1 Thoracic aneurysm without mention of rupture I71.2 Vitamin D deficiency E55.9 COPD (chronic obstructive pulmonary disease) J44.9 Surgical History: Past Surgical History (Last Updated 02/08/19 @ 14:14 by Eliza Frausto, BERRY) Hx of appendectomy Z90.49 Family History: Family History (Last Updated 02/08/19 @ 14:14 by Eliza Frausto, BERRY) Father Emphysema lung Mother old age - Current/ Previous Services Pulmonary Rehab:: No Social History - Smoking History Smoking Status: Former smoker Years Smokin Packs Smoked per Day: 1.5 Hx Smoking Cessation Date: 2014 Hx Tobacco Use: Yes Hx Smoking Exposure: Yes - Alcohol Use Alcohol Usage: Yes - rarely - Substance Abuse Hx Substance Use: No - Occupation Occupation (List type of work in comments):: Retired - Hobbies, Recreation, Social Activities Hobbies: None Functioning ADL/IADL - Current Ability Current Ability: Independent Self-Care (e.g.,grooming, dressing, & bathing), Independent Ambulation, Independent Transfer, Independent Household tasks (e.g., light meal prep, laundry, shopping) - Pt Functioning Prior to Problem Prior Functioning: Self-Care (e.g.,grooming, dressing, & bathing): Independent, Ambulation: Independent, Transfer: Independent, Household tasks (e.g., light meal prep, laundry, shopping): Independent Social Environment - Status Marital Status: - Current Living Arrangements Living Environment:: Spouse - Children How many children do you have?: 3 Do any of your children live nearby?: Yes - Safety Do you feel safe in your surroundings?: Yes - Assistance Do you need any assistance at home?: no Review of Systems Review of Systems: Right click = Denies (Slash). Left click = Reports ([place]) Respiratory: Reports: SOB upon Exertion, Dizziness/Lightheadedness, Sleep, Normal Is Patient Pain Free?: Yes Pain Level: 0/10 Previous experience dealing with pain?: yes Risk Factor Assessment - Vital Signs Pulse Rate: 69 Pulse Rhythm: Regular Respiratory Rate: 18 Pulse Ox: 95 - on 2lpm O2 via NC Blood Pressure: 128/68 Nailbeds:: pink - Diabetes Nutrition Referral for Diabetes: No - Obesity Height: 1.73 m Weight:: 78.925 kg Weight in Pounds: 174.0 lbs Weight Source: Stated by Patient Body Mass Index (BMI): 26.4 Nutritional Referral for Obesity: No - Physical Activity Physical Inactivity: Recreational activity - Risk Stratification Risk Guidelines: Lowest Risk: Risk Factor for Smoking, Risk Factor for Dyslipidemia, Risk Factor for Diabetes, Risk Factor for Hypertension, Risk Factor for Depression, Moderate Risk: Risk Factor for Obesity, Risk Factor for Sedentary Lifestyle - For Smoking Smoking Risk Guidelines: Smoking Low Risk: None or quit greater than 6 months ago. Smoking Moderate Risk: Smoker or quit 6 months or less ago. Smoking High Risk: Smoker - For Dyslipidemia Dyslipidemia Risk Guidelines: Low Risk: Moderate Risk: High Risk: 15-25% fat 25.1-29% fat >/= 30% fat. <7% sat fat 7-9% sat fat >9% sat fat. <150 mg chol 150-299 mg chol >/= 300 mg chol. LDL <100 LDL 100-129 LDL >/= 130. Chol/HDL ratio <5.0 Chol/HDL ratio 5.0-6.0 Chol/HDL ratio >6.0. Triglycerides <100 Triglycerides 100-149 Triglycerides >/= 150 - For Diabetes Mellitus Diabetes Risk Guidelines: Diabetes Low Risk: HgA1c <6.5% and/or FBG <120. Diabetes Moderate Risk: HgA1c 6.6-7.9% and/or FBG 120-180. Diabetes High Risk: HgA1c >/= 8% and/or FBG >180 - For Obesity/Overweight Obesity/Overweight Risk Guidelines: Obesity Low Risk: BMI <25.0. Obesity Moderate Risk: BMI 25-29.9. Obesity High Risk: BMI >/= 30.0 - For Hypertension Hypertension Risk Guidelines: Hypertension Low Risk: Systolic <120 and Diastolic <80. Hypertension Moderate Risk: Systolic 120-139 and Diastolic 80-89. Hypertension High Risk: Systolic >/= 140 and Diastolic >/= 90 - For Sedentary Lifestyle Sedentary Lifestyle Risk Guidelines: Sedentary Lifestyle Low Risk: >/= 1,500 kcal/week. Sedentary Lifestyle Moderate Risk: 700-1,499 kcal/week. Sedentary Lifestyle High Risk: < 700 kcal/week - For Depression Depression Risk Guidelines: Depression Low Risk: Not clinically depressed. Depression Moderate Risk: Mildly depressed. Depression High Risk: Clinically depressed Motivation - Motivation to Participate On a scale of 1 to 10, how prepared are you to commit to attending program?: 8 What do you see as barriers to successfully being able to complete the program?: none What do you see as the benefits of succesfully completing the program? In other words, what do you hope to get out of participating in the program?: breathing better, increased stamina Are there issues you are dealing with that will interfere with completing the program?: none Do you have a spouse or signficant other, family or friends who will help support you to complete the program?: yes Diagnostic Data Review - Pulmonary Function Test FEV1:: 38 FVC:: 63 FEV1/FVC%:: 39 Gold Classification: GOLD class II(mod. COPD)with FEV1/FVC <70%, 50%</= FEV1< 50% predicted
--- NOTE | 2019-02-08 13:39 | PR.ITP_ITS ---
General Information - General Information Admitting Diagnosis: COPD Gold Classification:: GOLD 2: Moderate Special Needs: NONE Oxygen: 2lpm ATC - PFT FEV1:: 38 FVC:: 2.42 FEV1/FVC%:: 39 - Education/Goals Barriers to Learning: None Individual Counseling: Initial Assessment: Dyspnea control techniques at rest, activity, and ADLs, Inhaled and respiratory medications, Exacerbation prevention & management, O2, Rx, system, safety, ADL management and pacing, Panic & depression management, Nutrition & weight management, Smoking cessation, Home exercise plan & guidelines, Intimacy, Safe travel, Advanced directives Patient Goals: Breathe better: Initial Assessment, Increase endurance/stamina: Initial Assessment, Improve diet and nutrition: Initial Assessment, Symptom management: Initial Assessment, Improve weight: Initial Assessment Exercise - Initial Assessment - Visit Date of Eval: 02/08/19 - Problem/Goals Problems: No regular exercise Goals:: Aerobic exercise 30-60 mins x 9 weeks, OR: 2-3/wk, Resistance: 2- 3x/weekly - Physician Prescribed Exercise Modalities: Treadmill, NuStep, SciFit Frequency (days/week): 3 Duration (Minutes):: 30 Intensity: Resting heart rate plus 20 to 30 beats/ minute Target Heart Rate:: 90-100 - Plan Plan and Plan to Review:: Benefits of exercise, Core components of exercise, How to measure dyspnea level, How to monitor dyspnea level, Exercise intensity, Exercise safety guideline, Home exercise guidelines, Gordon: 3-4/-13 Disease Management - Initial - Problems/Goals-Hypoxemia Hypoxemia Problems:: Hypoxemia Hypoxemia Goals:: Hypoxemia managed, Using O2 as Rx's safely - Problems/Goals-Medications Medication Goals: Adherence to prescribed medications, Correct technique/timing & care of MDI, DPI, nebulizer, and spacer. - Problems/Goals-Bronchial Hygiene Bronchial Hygiene Problems:: Respiratory infection Prevention/Management Bronchial Hygiene Goals:: Pt demonstrates effective cough, effective secretion clearance., Pt describes signs and symptoms of infection. - Initial Assessment SpO2:: 95 FiO2:: 29 Port O2:: 2 Does pt report taking home meds as prescribed?: Yes Medications: Yes MDI, Yes DPI, No NEB, No Spacer Patient Reports:: Prod cough with infection, Nasal Congestion, Rare respiratory infections - Plans Hypoxemia Plan:: Monitor SpO2 rest & with exercise, Recommend appropriate FiO2 to Pt/MD, Train appropriate O2 use with exercise, Train O2 safety & systems Reviewed prescribed medications:: Purpose, Schedule, Side effects, Importance of compliance Instruct correct technique/timing & care:: MDI, DPI, Return demo use of inhaler Bronchial Hygiene Plan: Controlled cough, CPT, Vibratory PEP device, VEST, Role of exercise in secretion clearance, NS Nasal spray, Hydration, Hand hygiene, Evaluate sputum, When to call MD, Signs/symptoms to report:, Influenza/Pneumovax vaccines, Cleaning of respiratory equipment Psychosocial - Initial Assess - Psychosocial Test Tests Completed: SF - 36 survey completed, Mood Scale Test Referred to MD for counseling:: No - Plan Reviewed screening results: Yes Instructions given regarding:: Benefits of exercise, Relaxation techniques Tobacco - Initial Assessment - Program Goals Tobacco Program Goals: Complete smoking cessation. Attend education classes. Improve Knowledge Test score - Learning Barriers Learning Barriers: Ready to Learn - Family Support Do you have family support?: Yes - Tobacco Use Tobacco Use: Non-smoker How long ago did you quit using tobacco products?: Greater than or equal to 6 months ago Years Smokin Do you use smokeless tobacco?: No - Intervention Smoking Cessation Referral:: No Individual Education/Counseling:: No Education Schedule Given:: No - Education Gave Education Materials For:: Tobacco Triggers, Pulmonary Disease, Risk Factors, Breathing Techniques, Medical Compliance, Pulmonary A&P, Exacerbation Signs & Symptoms, Stress & Relaxation Nutrition/Wt Mgmt - Initial - Problems/Goals Problems: Overweight Goals: BMI 21-25, Wt Loss 1-2 lbs per week, Waist circumference - Weight Management Knowledge Deficit Management of:: Overweight, Role of exercise in weight control Admit Height:: 1.73 m Admit Weight:: 78.925 kg Admit BMI:: 26.4 - Diabetes Diabetes:: No Insulin: No Do you monitor your blood sugar at home?: No - Intervention Referral to dietitian:: No Referral to Diabetic Clinic:: No Will attend diet classes:: No - Plan Nutrition Plan: Yes Review BMI or WC & identify target wt & strategies for wt control, Yes Nutrition education class:, Yes Medication education class [Baron romo]:, Yes Weight control education class:, Yes Education re: Need for ongoing weight monitoring, Yes Food diary:, Yes Physical activity log: Patient Health Questionnaire Initial Assessment 1. Little interest or pleasure in doing things: Several days 2. Feeling down, depressed, or hopeless: Not at all 3. Trouble falling or staying asleep, or sleeping too much: More than half the days 4. Feeling tired or having little energy: More than half the days 5. Poor appetite or overeating: More than half the days 6. Feeling bad about yourself -- or that you are a failure or have let yourself or your family down: Nearly every day 7. Trouble concentrating on things, such as reading the newspaper or watching television: Not at all 8. Moving or speaking so slowly that other people could have noticed. Or the opposite - being so fidgety or restless that you have been moving around a lot more than usual: Not at all 9. Thoughts that you would be better off , or of hurting yourself in some way: Not at all How difficult have these problems made it for you to do your work, take care of things at home, or get along with other people?: Somewhat difficult Total Score: 10 COPD Knowledge Test Initial COPD is a lung disease that:: Makes it hard to breathe & gets worse over time In the [place] the term COPD describes 2 main lung conditions:: Emphysema & chronic bronchitis The most common lung irritant that causes COPD is:: Cigarette smoke Common signs and symptoms of COPD include:: An ongoing cough/cough that produces a large amount of mucus, & SOB If you have COPD, what steps can you take?: All of the above Swelling of the ankles is common in COPD:: False Fatigue [tiredness] is common in COPD:: False Wheezing is common in COPD:: False Crushing chest pain is common in COPD:: False Rapid weight loss is common in COPD:: False Breathlessness is a normal response to exercise: True Exercise should be avoided if it makes you short of breath: False All bronchodilators act within 10 minutes: True A spacer device increases the medication to the lungs: False Annual flu vaccine is recommended for pts w/lung disease: True COPD Knowledge Test Total Score:: 11 COPD Assessment Test [CAT] - Questions Never cough = 0, Cough all the time = 5: 1 No phlegm = 0, Chest full of phlegm = 5: 2 No chest tightness = 0, Chest very tight = 5: 2 No breathless w/exertion = 0, Very breathless w/exertion = 5: 4 No limitations w/activity = 0, Very limited w/activity = 5: 2 Confident leaving home = 0, Not at all confident = 5: 2 Sleep soundly = 0, Don't sleep soundly = 5: 2 Lots of energy = 0, No energy at all = 5: 4 Total CAT score:: 19 Self-Efficacy Initial Assessment We would like to know how confident you are in doing certain activities. Please select your confidence level for:: Select your confidence level for the following using the scale 1-10 where 1 is not at all confident and 10 is totally confident. Your score is the average of all 6 responses. Fatigue: How confident are you that you can keep the fatigue caused by your disease from interfering with the things you want to do? Select Number: 8 Physical Discomfort or Pain: How confident are you that you can keep the physical discomfort or pain of your disease from interfering with the things you want to do? Select Number: 5 Emotional Distress: How confident are you that you can keep the emotional distress caused by your disease from interfering with the things you want to do? Select Number: 7 Other Symptoms or Health Problems: How confident are you that you can keep other symptoms or health problems from interfering with the things you want to do? Select Number: 7 Different Tasks and Activities: How confident are you that you can do the different tasks and activities needed to manage your health condition so as to reduce your need to see a doctor? Select Number: 8 Medication: How confident are you that you can do things other than just taking medication to reduce how much your illness affects your everyday life? Select Number: 8 Total Score:: 7 Nutrition Survey - Nutrition Survey Instructions Scoring Instructions: Scoring is as follows: Yes = 1 points. No = 0 point. P atient score that is >/=12 is considered to be at potential nutritional risk and could benefit from a referral to a registered dietitian. - Nutrition Survey Initial Have you lost >10 lbs over the past 2 months without trying?: No Are you following a special diet at home for diabetes, low fat, or low salt?: Yes Are you interested in meeting with a dietitian for help understanding your diet?: No Do you eat less than 3 meals a day?: No Do you eat fatty meats (escalante, sausage, ribs, etc), fried foods, desserts, large amounts of salad dressings, margarine, butter, or cheese most days?: No Do you have food allergies? [Enter types in comment field]: No Do you eat in restaurants more than 3 times a week?: No Do you season food with salt, seasoning salt, or garlic salt?: No Do you used canned, boxed, frozen meals, or soups, seasoning packets?: No Total Score:: 1
[2019-02-08 15:14] VITALS: BP 128/68; PULSE 69; RESP 18; O2SAT 95; BMI 26.4
[2019-02-08 15:34] VITALS: O2SAT 95; BMI 26.4
== END | disposition home or self-care (01) ==
LOC: PR 12:52
PROVIDERS: Family Provider Family Medicine; PCP Family Medicine; Visit Provider Internal Medicine Pulmonary Disease
DX: J44.9 Chronic obstructive pulmonary disease, unspecified (principal); I71.2 Thoracic aortic aneurysm, without rupture; Z87.891 Personal history of nicotine dependence

== ENCOUNTER 2019-03-03 09:30 | Outpatient (RCR) | payer MEDICARE, SELFPAY ==
[2019-02-08 14:49] VITALS: BMI 26.4
== END 2019-03-04 23:59 ==
LOC: PR 09:30
PROVIDERS: Family Provider Family Medicine; PCP Family Medicine; Referring Provider Internal Medicine Pulmonary Disease; Visit Provider Internal Medicine Pulmonary Disease
DX: J44.9 Chronic obstructive pulmonary disease, unspecified (principal)
CPT/HCPCS: 97150; G0424

== ENCOUNTER 2019-04-03 09:30 | Outpatient (RCR) | payer MEDICARE, SELFPAY ==
[2019-02-08 15:34] VITALS: BMI 26.4
--- NOTE | 2019-03-13 13:36 | PCM.PR.TP ---
Exercise - 30-Day Assessment - Physician Prescribed Exercise Modalities: Treadmill, Airdyne, NuStep, SciFit Frequency (days/week): 3 Duration (Minutes):: 30-45 Intensity: 60-80% age predicted maximum heart rate reserve Aerobic Exercise [30-60 min 3-7x/week]:: Not progressing - LIMITED BY HIS DYPNEA Target heart rate: 92-119 MAX HR 124 Gordon METs - Progression: 0.5-1.0 MET, RPE 11-14 WEEK: 2.5 - Home Exercise Home Exercise:: No Frequency:: ENCOURAGED DAILY AMBULATION Time (minutes):: 60 - 15 MIN INCREMENTS Disease Management - 30-Day - Hypoxemia Reassessment: Demonstrates knowledge of O2 Rx at rest, Demonstrates knowledge of O2 Rx with exercise, Using O2 as prescribed, Has home O2 as prescribed, Uses port O2 as prescribed - Medications Medication list reviewed:: Yes Taking medications 100% of the time:: Met Medication reassessment: Yes Pt demonstrates correct technique timing for MDI, Yes Pt demonstrates correct technique timing for DPI, Yes Pt demonstrates correct technique timing for NEB, Yes Pt demonstrates correct technique timing for spacer - Bronchial Hygiene Bronchial Hygiene Plan: Yes Pt demonstrates correctly for effective cough, Yes Pt demo correct for device, Yes Pt demo correct for improved hydration, Yes Pt demo correct for hand hygiene Psychosocial - 30-Day - Assessment Reassessment: COPD assessment w/ CAT, Geriatric depression screening, Self efficacy score Tobacco - 30-Day Assessment - Program Goals Tobacco Program Goals: Complete smoking cessation. Attend education classes. Improve Knowledge Test score - Stage of Change Stages of Change:: Action - Learning Barriers Learning Barriers: Participates in education - Family Support Do you have family support?: Yes - Tobacco Use Tobacco Use: Non-smoker Do you use smokeless tobacco?: No - Intervention Smoking Cessation Referral:: No Individual Education/Counseling:: No Education Schedule Given:: Yes - Education Gave Education Materials For:: Pulmonary Disease, Risk Factors, Breathing Techniques, Medical Compliance, Pulmonary A&P, Exacerbation Signs & Symptoms, Stress & Relaxation Nutrition/Wt Mgmt - 30-Day - Weight Management Weight Assessment:: Wt stable Weight:: 171 lb 8 oz Weight Goals Progress:: Progressing Patient Health Questionnaire 30-Day Re-eval Assessment 1. Little interest or pleasure in doing things: Several days 2. Feeling down, depressed, or hopeless: Not at all 3. Trouble falling or staying asleep, or sleeping too much: More than half the days 4. Feeling tired or having little energy: Several days 5. Poor appetite or overeating: Several days 6. Feeling bad about yourself -- or that you are a failure or have let yourself or your family down: More than half the days 7. Trouble concentrating on things, such as reading the newspaper or watching television: Not at all 8. Moving or speaking so slowly that other people could have noticed. Or the opposite - being so fidgety or restless that you have been moving around a lot more than usual: Not at all 9. Thoughts that you would be better off , or of hurting yourself in some way: Not at all Total Score: 7 COPD Assessment Test [CAT] - Questions Never cough = 0, Cough all the time = 5: 1 No phlegm = 0, Chest full of phlegm = 5: 2 No chest tightness = 0, Chest very tight = 5: 2 No breathless w/exertion = 0, Very breathless w/exertion = 5: 4 No limitations w/activity = 0, Very limited w/activity = 5: 2 Confident leaving home = 0, Not at all confident = 5: 2 Sleep soundly = 0, Don't sleep soundly = 5: 4 Lots of energy = 0, No energy at all = 5: 2 Total CAT score:: 19 Self-Efficacy 30-Day Re-eval Assessment We would like to know how confident you are in doing certain activities. Please select your confidence level for:: Select your confidence level for the following using the scale 1-10 where 1 is not at all confident and 10 is totally confident. Your score is the average of all 6 responses. Fatigue: How confident are you that you can keep the fatigue caused by your disease from interfering with the things you want to do? Select Number: 9 Physical Discomfort or Pain: How confident are you that you can keep the physical discomfort or pain of your disease from interfering with the things you want to do? Select Number: 6 Emotional Distress: How confident are you that you can keep the emotional distress caused by your disease from interfering with the things you want to do? Select Number: 8 Other Symptoms or Health Problems: How confident are you that you can keep other symptoms or health problems from interfering with the things you want to do? Select Number: 8 Different Tasks and Activities: How confident are you that you can do the different tasks and activities needed to manage your health condition so as to reduce your need to see a doctor? Select Number: 9 Medication: How confident are you that you can do things other than just taking medication to reduce how much your illness affects your everyday life? Select Number: 9 Total Score:: 8
== END 2019-04-03 23:59 ==
LOC: PR 09:30
PROVIDERS: Family Provider Family Medicine; PCP Family Medicine; Referring Provider Internal Medicine Pulmonary Disease; Visit Provider Internal Medicine Pulmonary Disease
DX: J44.9 Chronic obstructive pulmonary disease, unspecified (principal)
CPT/HCPCS: 97150; G0424

== ENCOUNTER 2019-05-03 09:30 | Outpatient (RCR) | payer MEDICARE, SELFPAY ==
[2019-02-08 15:34] VITALS: BMI 26.4
--- NOTE | 2019-04-10 09:56 | PCM.PR.TP ---
Exercise - 60-Day Assessment - Physician Prescribed Exercise Modalities: Treadmill, NuStep, SciFit Frequency (days/week): 3 Duration (Minutes):: 30-45 Intensity: 60-80% age predicted maximum heart rate reserve Aerobic Exercise [30-60 min 3-7x/week]:: Progressing Target heart rate: 92-119 w/ max HR 111 Gordon-14 METs - Progression: 0.5-1.0 MET, RPE 11-14 WEEK: 3.0 - slight increase from 2.5 - Home Exercise Home Exercise:: No Time (minutes):: 0 - patient is encouraged to participate in physical activity > 60 minutes daily. Disease Management - 60-Day - Hypoxemia Reassessment: Demonstrates knowledge of O2 Rx at rest, Demonstrates knowledge of O2 Rx with exercise, Using O2 as prescribed, Has home O2 as prescribed, Uses port O2 as prescribed - Medications Medication list reviewed:: Yes Taking medications 100% of the time:: Met Medication reassessment: Yes Pt demonstrates correct technique timing for MDI, Yes Pt demonstrates correct technique timing for DPI, Yes Pt demonstrates correct technique timing for NEB, Yes Pt demonstrates correct technique timing for spacer - Bronchial Hygiene Bronchial Hygiene Plan: Yes Pt demonstrates correctly for effective cough, Yes Pt demo correct for device, Yes Pt demo correct for improved hydration, Yes Pt demo correct for hand hygiene - 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 Attend education classes. Improve Knowledge Test score - Stage of Change Stages of Change:: Action - Learning Barriers Learning Barriers: Participates in education - Family Support Do you have family support?: Yes - Tobacco Use Tobacco Use: Non-smoker Do you use smokeless tobacco?: No - Intervention Smoking Cessation Referral:: No Individual Education/Counseling:: No Education Schedule Given:: Yes - Education Gave Education Materials For:: Pulmonary Disease, Risk Factors, Breathing Techniques, Medical Compliance, Pulmonary A&P, Exacerbation Signs & Symptoms, Stress & Relaxation Nutrition/Wt Mgmt - 60-Day - Weight Management Weight:: 174 lb - up 3 pounds this month Weight Goals Progress:: Progressing Patient Health Questionnaire 60-Day Re-eval Assessment 1. Little interest or pleasure in doing things: Not at all 2. Feeling down, depressed, or hopeless: Not at all 3. Trouble falling or staying asleep, or sleeping too much: Several days 4. Feeling tired or having little energy: Several days 5. Poor appetite or overeating: Not at all 6. Feeling bad about yourself -- or that you are a failure or have let yourself or your family down: Several days 7. Trouble concentrating on things, such as reading the newspaper or watching television: Not at all 8. Moving or speaking so slowly that other people could have noticed. Or the opposite - being so fidgety or restless that you have been moving around a lot more than usual: Not at all 9. Thoughts that you would be better off , or of hurting yourself in some way: Not at all Total Score: 3 Self-Efficacy 60-Day Re-eval Assessment We would like to know how confident you are in doing certain activities. Please select your confidence level for:: Select your confidence level for the following using the scale 1-10 where 1 is not at all confident and 10 is totally confident. Your score is the average of all 6 responses. Fatigue: How confident are you that you can keep the fatigue caused by your disease from interfering with the things you want to do? Select Number: 10 Physical Discomfort or Pain: How confident are you that you can keep the physical discomfort or pain of your disease from interfering with the things you want to do? Select Number: 8 Emotional Distress: How confident are you that you can keep the emotional distress caused by your disease from interfering with the things you want to do? Select Number: 9 Other Symptoms or Health Problems: How confident are you that you can keep other symptoms or health problems from interfering with the things you want to do? Select Number: 9 Different Tasks and Activities: How confident are you that you can do the different tasks and activities needed to manage your health condition so as to reduce your need to see a doctor? Select Number: 10 Medication: How confident are you that you can do things other than just taking medication to reduce how much your illness affects your everyday life? Select Number: 10 Total Score:: 9
== END 2019-05-04 23:59 ==
LOC: PR 09:30
PROVIDERS: Family Provider Family Medicine; PCP Family Medicine; Referring Provider Internal Medicine Pulmonary Disease; Visit Provider Internal Medicine Pulmonary Disease
DX: J44.9 Chronic obstructive pulmonary disease, unspecified (principal)
CPT/HCPCS: 97150; G0424

== ENCOUNTER 2019-05-08 09:15 | Outpatient (RCR) | payer MEDICARE, SELFPAY ==
[2019-02-08 15:34] VITALS: BMI 26.4
--- NOTE | 2019-05-10 11:12 | PR.ITP_ITS ---
Exercise - 90-Day Assessment - Physician Prescribed Exercise Modalities: Treadmill, NuStep, SciFit Frequency (days/week): 3 Duration (minutes): 30-45 Aerobic Exercise [30-60 min 3-7x/week]:: Met Target heart rate: 92-119 W MAX HR 124 NSR Gordon-14 METs - Progression: 0.5-1.0 MET, RPE 11-14 WEEK: 3 - Home Exercise Home Exercise?: No Time (minutes):: 0 - GOING TO JOIN [employer] Disease Management - 90-Day - Hypoxemia Reassessment: Demonstrates knowledge of O2 Rx at rest, Demonstrates knowledge of O2 Rx with exercise, Using O2 as prescribed, Has home O2 as prescribed, Uses port O2 as prescribed - Medications Medication list reviewed:: Yes Taking medications 100% of the time:: Met Medication reassessment: Yes Pt demonstrates correct technique timing for MDI, Yes Pt demonstrates correct technique timing for DPI, Yes Pt demonstrates correct technique timing for NEB, Yes Pt demonstrates correct technique timing for spacer - Bronchial Hygiene Bronchial Hygiene Plan: Yes Pt demonstrates correctly for effective cough, Yes Pt demo correct for device, Yes Pt demo correct for improved hydration, Yes Pt demo correct for hand hygiene, Yes Pt demo correct for evalute sputum, Yes Pt demo correct for verbalize when to call MD Psychosocial - 90-Day - Assessment Depression reassess: Management of stress: Met, Management of depression: Met, Practicing interventions: Met Tobacco - 90-Day Assessment - Program Goals Tobacco Program Goals: Complete smoking cessation. Attend education classes. Improve Knowledge Test score - Stage of Change Stages of Change:: Action - Learning Barriers Learning Barriers: Participates in education - Family Support Do you have family support?: Yes - Tobacco Use Tobacco Use: Non-smoker Do you use smokeless tobacco?: No - Intervention Smoking Cessation Referral:: No Individual Education/Counseling:: No Education Schedule Given:: Yes - Education Gave Education Materials For:: Tobacco Triggers, Pulmonary Disease, Risk Factors, Breathing Techniques, Medical Compliance, Pulmonary A&P, Exacerbation Signs & Symptoms, Stress & Relaxation Nutrition/Wt Mgmt - 90-Day - Weight Management Weight:: 174 lb Weight Goals Progress:: Goal met Patient Health Questionnaire 90-Day Re-eval Assessment 1. Little interest or pleasure in doing things: Not at all 2. Feeling down, depressed, or hopeless: Not at all 3. Trouble falling or staying asleep, or sleeping too much: Not at all 4. Feeling tired or having little energy: Not at all 5. Poor appetite or overeating: Not at all 6. Feeling bad about yourself -- or that you are a failure or have let yourself or your family down: Not at all 7. Trouble concentrating on things, such as reading the newspaper or watching television: Not at all 8. Moving or speaking so slowly that other people could have noticed. Or the opposite - being so fidgety or restless that you have been moving around a lot more than usual: Not at all 9. Thoughts that you would be better off , or of hurting yourself in some way: Not at all Total Score: 0 Self-Efficacy 90-Day Re-eval Assessment We would like to know how confident you are in doing certain activities. Please select your confidence level for:: Select your confidence level for the following using the scale 1-10 where 1 is not at all confident and 10 is totally confident. Your score is the average of all 6 responses. Fatigue: How confident are you that you can keep the fatigue caused by your disease from interfering with the things you want to do? Select Number: 10 Physical Discomfort or Pain: How confident are you that you can keep the p hysical discomfort or pain of your disease from interfering with the things you want to do? Select Number: 10 Emotional Distress: How confident are you that you can keep the emotional distress caused by your disease from interfering with the things you want to do? Select Number: 10 Other Symptoms or Health Problems: How confident are you that you can keep other symptoms or health problems from interfering with the things you want to do? Select Number: 10 Different Tasks and Activities: How confident are you that you can do the different tasks and activities needed to manage your health condition so as to reduce your need to see a doctor? Select Number: 10 Medication: How confident are you that you can do things other than just taking medication to reduce how much your illness affects your everyday life? Select Number: 10 Total Score:: 10 Nutrition Survey - Nutrition Survey Instructions Scoring Instructions: Scoring is as follows: Yes = 1 points. No = 0 point. Patient score that is >/=12 is considered to be at potential nutritional risk and could benefit from a referral to a registered dietitian. - Nutrition Survey Discharge Have you lost >10 lbs over the past 2 months without trying?: No Are you following a special diet at home for diabetes, low fat, or low salt?: No Do you eat less than 3 meals a day?: No Do you eat fatty meats (escalante, sausage, ribs, etc), fried foods, desserts, large amounts of salad dressings, margarine, butter, or cheese most days?: No Do you have food allergies? [Enter types in comment field]: No Do you eat in restaurants more than 3 times a week?: No Do you season food with salt, seasoning salt, or garlic salt?: No Do you used canned, boxed, frozen meals, or soups, seasoning packets?: Yes - BUT LIMITED TO LOW SODIUM, NO ADDED SALT
== END 2019-06-03 23:59 ==
LOC: PR 09:15
PROVIDERS: Family Provider Family Medicine; PCP Family Medicine; Referring Provider Internal Medicine Pulmonary Disease; Visit Provider Internal Medicine Pulmonary Disease
DX: J44.9 Chronic obstructive pulmonary disease, unspecified (principal)
CPT/HCPCS: 97150; G0424

== ENCOUNTER → 2019-06-07 10:20 | Outpatient (CLI) | payer MEDICARE, SELFPAY ==
[2019-02-08 15:34] VITALS: BMI 26.4
[2019-06-07 10:22] LABS: Bacteria 0 SEEN /hpf (None Seen); Mucous, Urine 0 SEEN /hpf (<or=2+); Red Blood Cells-Urine 0 SEEN /hpf (0-5); Squamous Epithelial Cells - UA 0 SEEN /hpf (0-5); White Blood Cells 0 SEEN /hpf (0-5)
[2019-06-07 12:40] LABS: Absolute Lymphocyte Count 1.55 X10^3/uL (0.83-4.51); Absolute Neutrophil Count 8.3 X10^3/uL (2.0-7.7); Basophil# 0.04 X10^3/uL; Basophil% 0.4 % (0-1); Eosinophils% 0.9 % (0-5); Hematocrit 42.9 % (40-54); Hemoglobin 14.2 g/dL (13.0-16.5); Lymphocyte # 1.55 X10^3/ul (4.0); Lymphocyte % 14.1 % (19-41); Mean Corp Hgb Conc 33.1 g/dL (32-36); Mean Corpuscular Hgb 31.7 pg (27.0-32.0); Mean Corpuscular Volume 95.8 fL (80-94); Mean Platelet Vol. 10.7 fl (6.2-12.0); Monocyte# 1.03 X10^3/uL; Monocyte% 9.3 % (0-10); NRBC Flagged by Analyzer 0 % (0-5); Neutrophil # 8.25 X10^3/uL (2.7-7.7); Neutrophil % 74.8 % (47-70); Platelet Count 300 K/mm3 (150-450); RBC Distribution Width SD 45.6 fl (35.1-43.9); Red Blood Count 4.48 M/mm3 (4.6-6.2)
[2019-06-07 12:41] LABS: Color, Urine Yellow (Yellow); Glucose, Dipstick Normal (Normal); Ketone-Dipstick 5 mg/dl (Negative); Leukocyte Esterase-Dipstick Negative /ul (Negative); Nitrite-Dipstick Negative (Negative); Occult Blood-Urine Negative /ul (Negative); Protein-Dipstick Negative (Negative); Specific Gravity, Urine 1.005 (1.002-1.030); Urine Bilirubin Dipstick Negative (Negative); Urine Clarity Clear (Clear); Urine Urobilinogen Normal (Normal)
[2019-06-07 13:00] LABS: PSA,Total - Annual Screen 0.33 ng/mL (0.00-4.00)
[2019-06-07 13:06] LABS: Vitamin D,25 Hydroxy 57.1 ng/mL (29.95-100.01)
== END ==
PROVIDERS: Family Provider Family Medicine; PCP Family Medicine; Referring Provider Family Medicine; Visit Provider Family Medicine
DX: J44.9 Chronic obstructive pulmonary disease, unspecified (principal); N40.1 Benign prostatic hyperplasia with lower urinary tract symptoms; E55.9 Vitamin D deficiency, unspecified; Z12.5 Encounter for screening for malignant neoplasm of prostate
CPT/HCPCS: 36415; 81001; 82306; 84153; 85025; G0103

== ENCOUNTER → 2019-10-10 10:26 | Outpatient (CLI) | payer MEDICARE, SELFPAY ==
[2019-02-08 15:34] VITALS: BMI 26.4
[2019-10-10 11:52] LABS: Absolute Lymphocyte Count 1.89 X10^3/uL (0.83-4.51); Basophil# 0.06 X10^3/uL; Basophil% 0.6 % (0-1); Eosinophil# 0.21 X10^3/uL; Eosinophils% 2.1 % (0-5); Hematocrit 46.6 % (40-54); Hemoglobin 15.2 g/dL (13.0-16.5); Lymphocyte # 1.89 X10^3/ul (4.0); Lymphocyte % 18.8 % (19-41); Mean Corp Hgb Conc 32.6 g/dL (32-36); Mean Corpuscular Hgb 31.2 pg (27.0-32.0); Mean Corpuscular Volume 95.7 fL (80-94); Mean Platelet Vol. 10.2 fl (6.2-12.0); Monocyte# 0.87 X10^3/uL; Monocyte% 8.7 % (0-10); NRBC Flagged by Analyzer 0 % (0-5); Neutrophil # 6.98 X10^3/uL (2.7-7.7); Neutrophil % 69.5 % (47-70); Platelet Count 261 K/mm3 (150-450); RBC Distribution Width CV 13.7 % (11.6-14.6); RBC Distribution Width SD 48.4 fl (35.1-43.9); Red Blood Count 4.87 M/mm3 (4.6-6.2)
[2019-10-10 12:07] LABS: ALB/GLOB Ratio 1.1 RATIO (0.9-2.4); AST(SGOT) 18 U/L (15-37); Alanine Aminotransfer ALT/SGPT 16 U/L (16-61); Albumin, Serum 3.9 g/dL (3.2-5.0); Alkaline Phosphatase 97 U/L (45-117); Anion Gap 3 (5-15); BUN 11 mg/dL (7-18); BUN/Creat Ratio 10.7 RATIO (10-20); Calcium,Total 8.8 mg/dL (8.5-10.1); Chloride 104 mmol/L (98-107); Creatinine, Serum 1.03 mg/dL (0.70-1.30); EST Glomerular Filtration Rate 74 mL/min (>60); Est Glom Filt Rate - Afr Amer 89 mL/min (>60); Globulin 3.6 g/dL (2.2-4.2); Glucose 93 mg/dL (74-106); Potassium 3.7 mmol/L (3.5-5.1); Protein, Total 7.5 g/dL (6.4-8.2); Sodium Level 138 mmol/L (136-145)
[2019-10-10 12:10] LABS: Vitamin D,25 Hydroxy 45.5 ng/mL
== END ==
PROVIDERS: PCP Family Medicine; Referring Provider Family Medicine; Visit Provider Family Medicine
DX: E55.9 Vitamin D deficiency, unspecified (principal); J44.9 Chronic obstructive pulmonary disease, unspecified
CPT/HCPCS: 36415; 80053; 82306; 85025

== ENCOUNTER → 2019-12-18 12:35 | Outpatient (CLI) | payer MEDICARE, SELFPAY ==
[2019-02-08 15:34] VITALS: BMI 26.4
--- NOTE | 2019-12-18 12:39 | CT_ITS ---
STUDY: CT CHEST WITHOUT CONTRAST REASON FOR EXAM: Male, 79 years old. PT STATED F/U LUNG NODULE RADIATION DOSAGE (If Supplied By Facility): CTDIvol = ( 11.61 ) mGy, DLP = ( 449.83 ) mGycm TECHNIQUE: Transaxial imaging was performed without the administration of intravenous contrast material. Multiplanar coronal and sagittal images were reformatted. Individualized dose optimization techniques were used for this CT. COMPARISON: Comparison is made with prior study dated December 21, 2018. FINDINGS: Mild degree of emphysematous changes or prominent in the upper lobes. Stable linear scarring in the medial aspect of the right middle lobe as well as in the left lower lobe. Stable 3.5 mm noncalcified nodule in the peripheral aspect of the left upper lobe as seen on axial image #45. There is no demonstrated pleural abnormality. There are calcifications of the coronary arteries. There are multiple small lymph nodes within the mediastinum, which are normal in size and morphology most compatible with reactive lymph hyperplasia. Normal hilar regions. Normal unenhanced pulmonary arteries. There is atherosclerotic calcification of the aortic arch with tortuosity and elongation of the aortic arch and descending thoracic aorta. Stable dilatation in the proximal portion of the ascending aorta with a transverse dimension of 4.2 cm. There are multi-level degenerative changes of the thoracic spine. There is no demonstrated abnormality of the visualized upper abdomen. CT/Chest without Contrast IMPRESSION: Stable examination. Electronically Signed: Jose Gordon, at 14:14 EDT , Service support ,
== END ==
PROVIDERS: Family Provider Family Medicine; PCP Family Medicine; Referring Provider Internal Medicine Pulmonary Disease; Visit Provider Internal Medicine Pulmonary Disease
DX: R91.1 Solitary pulmonary nodule (principal)
CPT/HCPCS: 71250

== ENCOUNTER → 2020-02-06 09:25 | Outpatient (CLI) | payer MEDICARE, SELFPAY ==
[2019-02-08 15:34] VITALS: BMI 26.4
[2020-02-06 12:17] LABS: Absolute Lymphocyte Count 1.75 X10^3/uL (0.83-4.51); Absolute Neutrophil Count 7.2 X10^3/uL (2.0-7.7); Basophil# 0.06 X10^3/uL; Basophil% 0.6 % (0-1); Eosinophil# 0.22 X10^3/uL; Eosinophils% 2.2 % (0-5); Hematocrit 45.6 % (40-54); Lymphocyte # 1.75 X10^3/ul (4.0); Lymphocyte % 17.2 % (19-41); Mean Corp Hgb Conc 32.9 g/dL (32-36); Mean Corpuscular Hgb 32.1 pg (27.0-32.0); Mean Corpuscular Volume 97.6 fL (80-94); Mean Platelet Vol. 10.6 fl (6.2-12.0); Monocyte# 0.85 X10^3/uL; Monocyte% 8.4 % (0-10); NRBC Flagged by Analyzer 0 % (0-5); Neutrophil # 7.23 X10^3/uL (2.7-7.7); Neutrophil % 71.1 % (47-70); Platelet Count 280 K/mm3 (150-450); RBC Distribution Width CV 13.8 % (11.6-14.6); RBC Distribution Width SD 49.1 fl (35.1-43.9); Red Blood Count 4.67 M/mm3 (4.6-6.2); White Blood Count 10.2 K/mm3 (4.4-11.0)
[2020-02-06 12:18] LABS: ALB/GLOB Ratio 1.1 RATIO (0.9-2.4); AST(SGOT) 16 U/L (15-37); Alanine Aminotransfer ALT/SGPT 16 U/L (16-61); Albumin, Serum 3.8 g/dL (3.2-5.0); Alkaline Phosphatase 97 U/L (45-117); Anion Gap 6 (5-15); BUN 12 mg/dL (7-18); BUN/Creat Ratio 10.8 RATIO (10-20); Calcium,Total 8.7 mg/dL (8.5-10.1); Chloride 106 mmol/L (98-107); Creatinine, Serum 1.11 mg/dL (0.70-1.30); EST Glomerular Filtration Rate 68 mL/min (>60); Est Glom Filt Rate - Afr Amer 82 mL/min (>60); Globulin 3.6 g/dL (2.2-4.2); Glucose 89 mg/dL (74-106); Potassium 3.6 mmol/L (3.5-5.1); Protein, Total 7.4 g/dL (6.4-8.2); Sodium Level 142 mmol/L (136-145)
[2020-02-06 12:22] LABS: Vitamin D,25 Hydroxy 49.2 ng/mL
== END ==
PROVIDERS: PCP Family Medicine; Referring Provider Family Medicine; Visit Provider Family Medicine
DX: J44.9 Chronic obstructive pulmonary disease, unspecified (principal); E55.9 Vitamin D deficiency, unspecified
CPT/HCPCS: 36415; 80053; 82306; 85025

== ENCOUNTER → 2020-02-26 10:38 | Outpatient (CLI) | payer MEDICARE, SELFPAY ==
[2019-02-08 15:34] VITALS: BMI 26.4
--- NOTE | 2020-02-26 10:40 | ECHOCS_ITS ---
Reason For Study: SOB Procedure This was a 2D Doppler, Color Flow transthoracic echocardiogram. The study was technically difficult. Parasternal images taken from right subcostal window, apical images taken from left subcostal window. Both with patient on left side. Contrast injection was performed. Exam performed in department. Left Ventricle Normal LV size. Left ventricular systolic function is normal. The estimated ejection fraction is 55 %. Stage 1 diastolic dysfunction. No regional wall motion abnormalities noted. Right Ventricle Normal RV size. Normal systolic function. Atria Normal left atrium. Normal right atrium. Tricuspid Valve Normal tricuspid valve. Aortic Valve The aortic valve is not well visualized. Pulmonic Valve The pulmonic valve is not well visualized. Great Vessels Mildly dilated aortic root. The pulmonary artery is normal size. Normal inferior vena cava. Pericardium/Pleural No pericardial effusion. Medication 22 gauge I.V. with prn adaptor inserted into right arm. Diluted definity 3ml given slow IV push to enhance endocardial definition. MMode/2D Measurements & Calculations LVIDd: 3.1 cm IVSd: 1.1 cm Ao root diam: 4.0 cm LVIDs: 2.0 cm LVPWd: 0.98 cm LA dimension: 2.9 cm FS: 36.5 % LAV(MOD-bp): 24.4 ml LA A4 area: 11.1 cm2 RA A4 area: 9.7 cm2 LAV(MOD-bp) Indexed: 12.7 ml/m2 LAV(MOD-sp2): 22.1 ml LAV(MOD-sp4): 23.6 ml Time Measurements MV dec time: 0.30 sec Doppler Measurements & Calculations MV E max arsenio: 71.7 cm/sec Lat Peak E' Arsenio: 8.1 cm/sec Med Peak E' Arsenio: 6.9 cm/sec MV A max arsenio: 104.2 cm/sec E/E' lat: 8.9 E/E' med: 10.4 MV E/A: 0.69 MV V2 max: 108.0 cm/sec MV P1/2t max arsenio: 68.7 cm/sec Ao V2 max: 101.9 cm/sec MV max P.7 mmHg MV P1/2t: 97.7 msec Ao max P.2 mmHg MV V2 mean: 59.2 cm/sec MV dec slope: 205.9 cm/sec2 MV mean P.6 mmHg MVA(P1/2t): 2.3 cm2 MV V2 VTI: 25.3 cm LV V1 max: 91.0 cm/sec PA V2 max: 97.4 cm/sec TR max arsenio: 222.6 cm/sec LV V1 max P.3 mmHg TR max P.8 mmHg Interpretation Summary Normal LV size. Left ventricular systolic function is normal. The estimated ejection fraction is 55 %. Stage 1 diastolic dysfunction. Mildly dilated aortic root. Contrast injection was performed. Ordering Physician: Ron Garcia Referring Physician: Ron Garcia Performed By: Burke Feng RCS
== END ==
PROVIDERS: PCP Family Medicine; Referring Provider Family Medicine; Visit Provider Family Medicine
DX: R06.02 Shortness of breath (principal)
CPT/HCPCS: 93306; Q9957; A4216; C8929

== ENCOUNTER → 2020-09-12 09:57 | Outpatient (CLI) | payer MEDICARE, SELFPAY ==
[2019-02-08 15:34] VITALS: BMI 26.4
[2020-09-12 12:10] LABS: Absolute Lymphocyte Count 1.59 X10^3/uL (0.83-4.51); Absolute Neutrophil Count 6.9 X10^3/uL (2.0-7.7); Basophil# 0.05 X10^3/uL; Basophil% 0.5 % (0-1); Eosinophil# 0.19 X10^3/uL; Hematocrit 45.9 % (40-54); Hemoglobin 14.9 g/dL (13.0-16.5); Lymphocyte # 1.59 X10^3/ul (4.0); Lymphocyte % 16.6 % (19-41); Mean Corp Hgb Conc 32.5 g/dL (32-36); Mean Corpuscular Hgb 31.8 pg (27.0-32.0); Mean Corpuscular Volume 97.9 fL (80-94); Mean Platelet Vol. 10.7 fl (6.2-12.0); Monocyte# 0.81 X10^3/uL; Monocyte% 8.4 % (0-10); NRBC Flagged by Analyzer 0 % (0-5); Neutrophil # 6.93 X10^3/uL (2.7-7.7); Neutrophil % 72.2 % (47-70); Platelet Count 292 K/mm3 (150-450); RBC Distribution Width CV 13.2 % (11.6-14.6); RBC Distribution Width SD 47.3 fl (35.1-43.9); Red Blood Count 4.69 M/mm3 (4.6-6.2); White Blood Count 9.6 K/mm3 (4.4-11.0)
[2020-09-12 12:25] LABS: Vitamin D,25 Hydroxy 51.6 ng/mL
[2020-09-12 12:36] LABS: ALB/GLOB Ratio 1.1 RATIO (0.9-2.4); AST(SGOT) 23 U/L (15-37); Alanine Aminotransfer ALT/SGPT 15 U/L (16-61); Albumin, Serum 3.8 g/dL (3.2-5.0); Alkaline Phosphatase 95 U/L (45-117); Anion Gap 6 (5-15); BUN 12 mg/dL (7-18); BUN/Creat Ratio 10.6 RATIO (10-20); Calcium,Total 9.2 mg/dL (8.5-10.1); Chloride 105 mmol/L (98-107); Creatinine, Serum 1.13 mg/dL (0.70-1.30); EST Glomerular Filtration Rate 66 mL/min (>60); Est Glom Filt Rate - Afr Amer 80 mL/min (>60); Globulin 3.5 g/dL (2.2-4.2); Glucose 96 mg/dL (74-106); Potassium 3.8 mmol/L (3.5-5.1); Protein, Total 7.3 g/dL (6.4-8.2); Sodium Level 140 mmol/L (136-145)
== END ==
PROVIDERS: PCP Family Medicine; Referring Provider Family Medicine; Visit Provider Family Medicine
DX: E55.9 Vitamin D deficiency, unspecified (principal); Z87.891 Personal history of nicotine dependence
CPT/HCPCS: 36415; 80053; 82306; 85025

== ENCOUNTER → 2020-12-13 10:21 | Outpatient (CLI) | payer MEDICARE, SELFPAY ==
[2019-02-08 15:34] VITALS: BMI 26.4
[2020-12-13 12:23] LABS: Absolute Lymphocyte Count 2.04 X10^3/uL (0.83-4.51); Absolute Neutrophil Count 7.3 X10^3/uL (2.0-7.7); Basophil# 0.05 X10^3/uL; Basophil% 0.5 % (0-1); Eosinophil# 0.22 X10^3/uL; Eosinophils% 2.1 % (0-5); Hematocrit 47.4 % (40-54); Hemoglobin 15.5 g/dL (13.0-16.5); Lymphocyte # 2.04 X10^3/ul (0.83-4.51); Lymphocyte % 19.1 % (19-41); Mean Corp Hgb Conc 32.7 g/dL (32-36); Mean Corpuscular Hgb 31.8 pg (27.0-32.0); Mean Corpuscular Volume 97.1 fL (80-94); Monocyte% 9.4 % (0-10); NRBC Flagged by Analyzer 0 % (0-5); Neutrophil # 7.32 X10^3/uL (2.7-7.7); Neutrophil % 68.5 % (47-70); Platelet Count 307 K/mm3 (150-450); RBC Distribution Width CV 13.2 % (11.6-14.6); RBC Distribution Width SD 47.2 fl (35.1-43.9); Red Blood Count 4.88 M/mm3 (4.6-6.2); White Blood Count 10.7 K/mm3 (4.4-11.0)
[2020-12-13 12:39] LABS: ALB/GLOB Ratio 1.2 RATIO (0.9-2.4); AST(SGOT) 21 U/L (15-37); Alanine Aminotransfer ALT/SGPT 15 U/L (16-61); Albumin, Serum 4.1 g/dL (3.2-5.0); Alkaline Phosphatase 97 U/L (45-117); Anion Gap 7 (5-15); BUN 13 mg/dL (7-18); BUN/Creat Ratio 11.3 RATIO (10-20); Calcium,Total 9.6 mg/dL (8.5-10.1); Chloride 104 mmol/L (98-107); Creatinine, Serum 1.15 mg/dL (0.70-1.30); EST Glomerular Filtration Rate 65 mL/min (>60); Est Glom Filt Rate - Afr Amer 78 mL/min (>60); Globulin 3.4 g/dL (2.2-4.2); Glucose 84 mg/dL (74-106); Potassium 3.9 mmol/L (3.5-5.1); Protein, Total 7.5 g/dL (6.4-8.2); Sodium Level 141 mmol/L (136-145)
[2020-12-13 12:42] LABS: Vitamin D,25 Hydroxy 45.8 ng/mL
== END ==
PROVIDERS: PCP Family Medicine; Referring Provider Family Medicine; Visit Provider Family Medicine
DX: E55.9 Vitamin D deficiency, unspecified (principal); Z87.891 Personal history of nicotine dependence
CPT/HCPCS: 36415; 80053; 82306; 85025

== ENCOUNTER → 2020-12-30 09:10 | Outpatient (CLI) | payer MEDICARE, SELFPAY ==
[2019-02-08 15:34] VITALS: BMI 26.4
--- NOTE | 2020-12-31 06:30 | PFT ---
INTRODUCTION: The patient is an 80-year-old male that presents for pulmonary function studies secondary to a diagnosis of chronic respiratory failure. Respiratory therapy reports good patient effort. Bronchodilators were used during testing. INTERPRETATION: Forced expiration spirometry demonstrates the presence of a severe large airways obstructive ventilatory defect. There was a significant response to aerosolized bronchodilators. Spirograms are of good quality but do not plateau indicating slow emptying of the lungs. Body plethysmography was performed and revealed a decreased TLC to 4.37 L, 78% of predicted, indicative of a mild restrictive ventilatory impairment. The remainder of the lung volumes are symmetrically reduced. Diffusing capacity by single breath CO is reduced at 65% of predicted. IMPRESSION: Partially reversible severe mixed ventilatory defect with mild reduction in diffusing capacity.
== END ==
PROVIDERS: PCP Family Medicine; Referring Provider Family Medicine; Visit Provider Family Medicine
DX: J96.10 Chronic respiratory failure, unspecified whether with hypoxia or hypercapnia (principal)
CPT/HCPCS: 94060; 94726; 94729

== ENCOUNTER → 2021-01-01 13:06 | Outpatient (CLI) | payer MEDICARE, SELFPAY ==
[2019-02-08 15:34] VITALS: BMI 26.4
--- NOTE | 2021-01-01 13:11 | CT_ITS ---
STUDY: CT CHEST WITH CONTRAST REASON FOR EXAM: Male, 80 years old. THORACIC AORTIC ANEURYSM RADIATION DOSAGE (If Supplied By Facility): CTDIvol = ( 10.31 ) mGy, DLP = ( 408.99 ) mGycm TECHNIQUE: Transaxial imaging was performed following intravenous administration of IV 100mL Isovue-370. Individualized dose optimization techniques were used for this CT. COMPARISON: 12/18/2019 FINDINGS: Some bibasilar bronchial wall thickening and scarring. No noncalcified nodule or mass. There is no demonstrated pleural abnormality. Normal heart and pericardium. 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 Normal mediastinum. Normal hilar regions. Normal enhanced pulmonary arteries. Normal aorta arch and descending thoracic aorta. Normal osseous structures. There is no demonstrated abnormality of the visualized upper abdomen. 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 Electronically Signed: Damion Jones MD at 15:48 EDT Tel , Service support ,
== END ==
PROVIDERS: PCP Family Medicine; Referring Provider Family Medicine; Visit Provider Family Medicine
DX: I71.2 Thoracic aortic aneurysm, without rupture (principal)
CPT/HCPCS: 71260; Q9967

== ENCOUNTER → 2021-04-18 | Outpatient (CLI) | payer MEDICARE, SELFPAY | END | disposition home or self-care (01) | PROVIDERS: PCP Family Medicine; Visit Provider Family Medicine | DX: J44.1 Chronic obstructive pulmonary disease with (acute) exacerbation (principal) | CPT/HCPCS: 87633; 87635; U0005; U0003 ==

== ENCOUNTER → 2021-05-19 14:38 | Outpatient (CLI) | payer MEDICARE, SELFPAY ==
--- NOTE | 2021-05-19 15:03 | VDLE_ITS ---
Reason For Study: Swelling RIGHT LEFT CFV is compressible, spontaneous, phasic, GSV is normal. competent and demonstrates normal CFV is compressible, spontaneous, phasic, augmentation. competent, and demonstrates normal Procedure augmentation. This is a venous duplex using B-mode, color FV is compressible, spontaneous, phasic, flow and spectral Doppler. competent and demonstrates normal Exam performed in department. augmentation. A preliminary report was called and/or faxed POP V is compressible, spontaneous, phasic, to Radha. competent and demonstrates normal augmentation. T/P Trunk is compressible. PTV is compressible. LT PerV is compressible. VL/Venous Duplex US, Unilateral Interpretation Summary Deep veins of the left lower extremity are patent and compressible segmentally. There is no evidence of left lower extremity deep vein thrombosis. Valvular competence appears intac t within the proximal deep venous system on the left . The left great saphenous vein appears patent a nd compressible segmentally. Ordering Physician: Ron Garcia Referring Physician: Ron Garcia Performed By: Joana Tamayo RVT
== END ==
PROVIDERS: PCP Family Medicine; Visit Provider Nurse Practitioner Family
DX: M79.89 Other specified soft tissue disorders (principal)
CPT/HCPCS: 93971

== ENCOUNTER → 2021-05-26 14:28 | Outpatient (CLI) | payer MEDICARE, SELFPAY ==
[2021-05-26 18:15] LABS: Hematocrit 43.3 % (40-54); Hemoglobin 14.5 g/dL (13.0-16.5); Mean Corp Hgb Conc 33.5 g/dL (32-36); Mean Corpuscular Hgb 31.7 pg (27.0-32.0); Mean Corpuscular Volume 94.7 fL (80-94); Mean Platelet Vol. 10.8 fl (6.2-12.0); Platelet Count 298 K/mm3 (150-450); RBC Distribution Width CV 13.8 % (11.6-14.6); RBC Distribution Width SD 47.8 fl (35.1-43.9); Red Blood Count 4.57 M/mm3 (4.6-6.2); White Blood Count 9.3 K/mm3 (4.4-11.0)
[2021-05-26 18:47] LABS: BNP,B-Type NATRIURETIC PEPTIDE 20.3 pg/mL (0-100)
[2021-05-26 18:58] LABS: Anion Gap 11 (5-15); BUN 11 mg/dL (7-18); BUN/Creat Ratio 8.7 RATIO (10-20); Calcium,Total 8.9 mg/dL (8.5-10.1); Chloride 101 mmol/L (98-107); Creatinine, Serum 1.27 mg/dL (0.70-1.30); EST Glomerular Filtration Rate 58 mL/min (>60); Est Glom Filt Rate - Afr Amer 70 mL/min (>60); Glucose 82 mg/dL (74-106); Potassium 4.1 mmol/L (3.5-5.1); Sodium Level 135 mmol/L (136-145)
== END ==
PROVIDERS: Nurse Practitioner Family; PCP Family Medicine; Visit Provider Family Medicine
DX: R06.02 Shortness of breath (principal)
CPT/HCPCS: 36415; 80048; 83880; 85027

== ENCOUNTER 2021-09-18 11:02 | Outpatient (CLI) | payer MEDICARE, SELFPAY ==
[2021-09-18 12:22] LABS: Absolute Lymphocyte Count 1.76 X10^3/uL (0.83-4.51); Absolute Neutrophil Count 6.9 X10^3/uL (2.0-7.7); Basophil# 0.06 X10^3/uL; Basophil% 0.6 % (0-1); Hematocrit 45.6 % (40-54); Hemoglobin 15.1 g/dL (13.0-16.5); Lymphocyte # 1.76 X10^3/ul (0.83-4.51); Lymphocyte % 17.6 % (19-41); Mean Corp Hgb Conc 33.1 g/dL (32-36); Mean Corpuscular Hgb 31.8 pg (27.0-32.0); Mean Platelet Vol. 10.4 fl (6.2-12.0); NRBC Flagged by Analyzer 0 % (0-5); Neutrophil # 6.85 X10^3/uL (2.7-7.7); Neutrophil % 68.3 % (47-70); Platelet Count 277 K/mm3 (150-450); RBC Distribution Width CV 13.3 % (11.6-14.6); RBC Distribution Width SD 47.4 fl (35.1-43.9); Red Blood Count 4.75 M/mm3 (4.6-6.2)
[2021-09-18 12:46] LABS: ALB/GLOB Ratio 1.3 RATIO (0.9-2.4); AST(SGOT) 18 U/L (15-37); Alanine Aminotransfer ALT/SGPT 14 U/L (16-61); Albumin, Serum 3.9 g/dL (3.2-5.0); Alkaline Phosphatase 94 U/L (45-117); Anion Gap 7 (5-15); BUN 14 mg/dL (7-18); BUN/Creat Ratio 13.1 RATIO (10-20); Calcium,Total 9.6 mg/dL (8.5-10.1); Chloride 105 mmol/L (98-107); Creatinine, Serum 1.07 mg/dL (0.70-1.30); EST Glomerular Filtration Rate 70 mL/min (>60); Est Glom Filt Rate - Afr Amer 85 mL/min (>60); Globulin 3.1 g/dL (2.2-4.2); Glucose 81 mg/dL (74-106); Potassium 4.2 mmol/L (3.5-5.1); Sodium Level 141 mmol/L (136-145)
[2021-09-18 12:52] LABS: Vitamin D,25 Hydroxy 65.6 ng/mL
== END 2021-09-18 23:59 | disposition home or self-care (01) ==
LOC: MFPLAB 11:06
PROVIDERS: PCP Family Medicine; Referring Provider Family Medicine; Visit Provider Family Medicine
DX: J44.9 Chronic obstructive pulmonary disease, unspecified (principal); E55.9 Vitamin D deficiency, unspecified
CPT/HCPCS: 36415; 80053; 82306; 85025

== ENCOUNTER 2021-10-10 13:37 | Outpatient (CLI) | payer MEDICARE, SELFPAY ==
--- NOTE | 2021-10-10 13:47 | ECHOD_ITS ---
Reason For Study: CORTEZ Procedure This was a 2D Doppler, Color Flow transthoracic echocardiogram. The study was technically difficult. Exam performed in department. Left Ventricle Normal LV size. Left ventricular systolic function is normal. The estimated ejection fraction is 60 %. Diastolic function is indeterminate. No regional wall motion abnormalities noted. Right Ventricle Normal RV size. Normal systolic function. Atria Normal left atrium. Normal right atrium. No doppler evidence for ASD. Mitral Valve There is no mitral annular calcification. Normal mitral valve. Mild (1+) mitral valve insufficiency. Tricuspid Valve Normal tricuspid valve. Trivial tricuspid valve insufficiency. Right ventricular systolic pressure estimated to be 35 mmHg. Aortic Valve Trisinus/trileaflet aortic valve. Normal aortic valve. Trivial aortic valve insufficiency. Pulmonic Valve The pulmonic valve is not well visualized. Great Vessels The aortic root is not well visualized. Pericardium/Pleural No pericardial effusion. MMode/2D Measurements & Calculations LVIDd: 4.1 cm IVSd: 0.95 cm LAV(MOD-bp): 31.2 ml LVIDs: 2.8 cm LVPWd: 0.88 cm LAV(MOD-bp) Indexed: 16.1 ml/m2 RVDd: 3.4 cm FS: 32.6 % LAV(MOD-sp2): 34.2 ml LAV(MOD-sp4): 28.6 ml SV(MOD-sp4): 53.3 ml SV(sp4-el): 57.4 ml LVAd ap4: 29.5 cm2 LVLd ap4: 8.2 cm EDV(MOD-sp4): 86.2 ml EDV(sp4-el): 90.1 ml LVAs ap4: 16.1 cm2 LVLs ap4: 6.7 cm ESV(MOD-sp4): 32.9 ml ESV(sp4-el): 32.8 ml EF(MOD-sp4): 61.8 % EF(sp4-el): 63.6 % LA A4 area: 12.5 cm2 LA dimension(2D): 3.3 cm RA A4 area: 12.4 cm2 Time Measurements MV dec time: 0.20 sec Doppler Measurements & Calculations MV E max arsenio: 97.7 cm/sec Lat Peak E' Arsenio: 9.4 cm/sec Med Peak E' Arsenio: 8.4 cm/sec MV A max arsenio: 120.1 cm/sec E/E' lat: 10.4 E/E' med: 11.6 MV E/A: 0.81 Ao V2 max: 98.0 cm/sec AI max arsenio: 313.6 cm/sec LV V1 max: 95.1 cm/sec Ao max P.8 mmHg AI max P.3 mmHg LV V1 max P.6 mmHg AI dec slope: 128.9 cm/sec2 AI P1/2t: 712.5 msec PA V2 max: 95.1 cm/sec TR max arsenio: 282.6 cm/sec TR max P.0 mmHg ECHO/Echo Complete Interpretation Summary The study was technically difficult. Left ventricular systolic function is normal. The estimated ejection fraction is 60 %. Mild (1+) mitral valve insufficiency. Trivial tricuspid valve insufficiency. Trivial aortic valve insufficiency. Right ventricular systolic pressure estimated to be 35 mmHg. Diastolic function is indeterminate. Ordering Physician: Ron Garcia Referring Physician: Ron Garcia Performed By: Elise Vega RDCS
== END 2021-10-10 23:59 | disposition home or self-care (01) ==
PROVIDERS: PCP Family Medicine; Referring Provider Family Medicine; Visit Provider Family Medicine
DX: R06.02 Shortness of breath (principal)
CPT/HCPCS: 93306

== ENCOUNTER → 2021-12-18 | Outpatient (CLI) | payer MEDICARE, SELFPAY ==
[2021-12-18 12:22] LABS: Absolute Lymphocyte Count 1.86 X10^3/uL (0.83-4.51); Absolute Neutrophil Count 6.5 X10^3/uL (2.0-7.7); Basophil# 0.05 X10^3/uL; Basophil% 0.5 % (0-1); Eosinophil# 0.28 X10^3/uL; Eosinophils% 2.9 % (0-5); Hematocrit 46.6 % (40-54); Hemoglobin 15.4 g/dL (13.0-16.5); Lymphocyte # 1.86 X10^3/ul (0.83-4.51); Lymphocyte % 19.5 % (19-41); Mean Corpuscular Hgb 31.7 pg (27.0-32.0); Mean Corpuscular Volume 95.9 fL (80-94); Mean Platelet Vol. 10.9 fl (6.2-12.0); Monocyte# 0.82 X10^3/uL; Monocyte% 8.6 % (0-10); NRBC Flagged by Analyzer 0 % (0-5); Neutrophil # 6.52 X10^3/uL (2.7-7.7); Neutrophil % 68.2 % (47-70); Platelet Count 251 K/mm3 (150-450); RBC Distribution Width CV 13.5 % (11.6-14.6); RBC Distribution Width SD 48.1 fl (35.1-43.9); Red Blood Count 4.86 M/mm3 (4.6-6.2); White Blood Count 9.6 K/mm3 (4.4-11.0)
[2021-12-18 12:34] LABS: ALB/GLOB Ratio 1.1 RATIO (0.9-2.4); AST(SGOT) 16 U/L (15-37); Alanine Aminotransfer ALT/SGPT 20 U/L (16-61); Albumin, Serum 3.8 g/dL (3.2-5.0); Alkaline Phosphatase 85 U/L (45-117); Anion Gap 6 (5-15); BUN 10 mg/dL (7-18); BUN/Creat Ratio 9.5 RATIO (10-20); Chloride 106 mmol/L (98-107); Creatinine, Serum 1.05 mg/dL (0.70-1.30); EST Glomerular Filtration Rate 72 mL/min (>60); Est Glom Filt Rate - Afr Amer 87 mL/min (>60); Globulin 3.4 g/dL (2.2-4.2); Glucose 95 mg/dL (74-106); Protein, Total 7.2 g/dL (6.4-8.2); Sodium Level 138 mmol/L (136-145)
[2021-12-18 12:38] LABS: Vitamin D,25 Hydroxy 77.3 ng/mL
== END | disposition home or self-care (01) ==
LOC: MFPLAB 10:17
PROVIDERS: PCP Family Medicine; Referring Provider Family Medicine; Visit Provider Family Medicine
DX: J44.9 Chronic obstructive pulmonary disease, unspecified (principal); E55.9 Vitamin D deficiency, unspecified
CPT/HCPCS: 36415; 80053; 82306; 85025

== ENCOUNTER → 2022-01-02 | Outpatient (CLI) | payer MEDICARE, SELFPAY ==
--- NOTE | 2022-01-02 13:52 | CT_ITS ---
STUDY: CTA CHEST REASON FOR EXAM: Male, 81 years old. THORACIC AA RADIATION DOSAGE (If Supplied By Facility): CTDIvol = ( 10.60 ) mGy, DLP = ( 500.78 ) mGycm TECHNIQUE: The examination was performed with the intravenous administration of IV 100mL Isovue-370. Post-processing of the angiographic images was performed, with multiplanar reformation and 3D reconstruction. Individualized dose optimization techniques were used for this CT. COMPARISON: Comparison is made with prior study dated 01/01/2021. FINDINGS: Normal enhancement of the main pulmonary artery and right and left pulmonary arteries. Normal enhancement of the bilateral peripheral pulmonary arteries. There is no demonstrated pulmonary embolism. There is aneurysmal dilatation of the ascending aorta. The transverse diameter of the ascending aorta measures 42.6. Mm''s. This is unchanged. Atherosclerotic calcific plaques of the aortic arch and descending thoracic aorta. There is no demonstrated aortic dissection. Normal heart and pericardium. Normal mediastinum. Normal hilar regions. Normal visualized trachea and bronchi. The lungs are well expanded. Stable 3 mm noncalcified nodule in the peripheral lateral aspect of the left upper lobe as seen on axial image #38. Stable scarring in the anterior aspect of the right middle lobe. Stable scarring and bronchiectasis in both posterior segments of the right and left lower lobes. Normal pleura. Normal chest wall structures. There are degenerative changes of thoracic spine. Normal visualized upper abdomen. CT/CTA Chest W/WO Contrast IMPRESSION: Stable examination. Electronically Signed: Jose Gordon MD at 14:34 EDT ,
== END | disposition home or self-care (01) ==
LOC: CT 13:51
PROVIDERS: PCP Family Medicine; Referring Provider Family Medicine; Visit Provider Family Medicine
DX: I71.2 Thoracic aortic aneurysm, without rupture (principal)
CPT/HCPCS: 71275; Q9967

== ENCOUNTER 2022-05-14 15:57 | Emergency (ER) | payer MEDICARE, SELFPAY ==
[2022-05-14 16:02] VITALS: BP 133/90; PULSE 94; RESP 18; TEMP 36.4; O2SAT 87; BMI 26.4
[2022-05-14 16:08] VITALS: PULSE 84; RESP 20; O2SAT 95
--- NOTE | 2022-05-14 16:15 | EDS_ITS ---
HPI History of Present Illness Chief Complaint: Chest Pain Informant: patient and spouse/S.O. Narrative Narrative: Sudden onset of left-sided chest pressure little mild worsening dyspnea 330 last an hour ago while sitting playing cards. No nausea or diaphoresis. No radicular symptoms. Symptoms lasted briefly states it went away by time he got in the car. He states intermittent mild symptoms over last 2 years however this was significant. Stress test years ago. No history of heart cath. No cardiac history. History of COPD on as needed oxygen. Recent leg swelling saw PCP office 2 days a started on a diuretic. Denies orthopnea. Denies recent travel, surgeries, or immobilizations. No history of PE or DVT. CVD Risk Factors: Negative for Hypertension, Diabetes, Hypercholesterolemia or Smoking PFSH PFSH Medical History Allergic rhinitis BPH w urinary obs/LUTS Congestive heart failure (CHF) COPD (chronic obstructive pulmonary disease) History of tobacco use Lung nodule < 6cm on CT Thoracic aneurysm without mention of rupture Vitamin D deficiency Allergy/AdvReac Type Severity Reaction Status Date / Time No Known Allergies Allergy Verified 05/14/22 16:05 Family History Father Emphysema lung Mother old age Surgical History Hx of appendectomy Social History Smoking Status: Former smoker ROS ROS ED Constitutional Constitutional ED: Denies chills, fever(s) or sweats Eyes Eyes: Denies change in vision ENT ENT ED: Denies dysphagia or sore throat Cardiovascular Cardiovascular: Reports chest pain and leg edema; Denies palpitations or racing heartbeat Respiratory/Chest Respiratory/Chest: Denies cough, dyspnea or dyspnea on exertion Gastrointestinal Gastrointestinal: Denies abdominal pain, diarrhea, nausea or vomiting Genitourinary Genitourinary ED: Denies dysuria, hematuria or urinary frequency Musculoskeletal Musculoskeletal: Denies back pain, extremity pain or neck pain Integumentary Denies rash or wounds Neurologic Neurologic: Denies headache(s), paresthesias or weakness EXAM Physical Exam Const Vital Signs: 05/14/22 16:02 05/14/22 16:08 05/14/22 16:08 Temperature 97.6 F L Temperature Source Temporal Pulse Rate 94 84 Respiratory Rate 18 20 H Respiratory Effort Normal Blood Pressure 133/90 H Blood Pressure Mean 104 Pulse Ox 87 95 Oxygen Delivery Method Nasal Cannula Nasal Cannula Oxygen Flow Rate (L/min) 2 2 05/14/22 16:29 05/14/22 17:26 05/14/22 19:19 Temperature Temperature Source Pulse Rate 77 75 Respiratory Rate 16 16 Respiratory Effort Blood Pressure 136/80 H 131/74 H Blood Pressure Mean 98 93 Pulse Ox 96 94 Oxygen Delivery Method Room Air Room Air Nasal Cannula Oxygen Flow Rate (L/min) 2 05/14/22 19:58 Temperature Temperature Source Pulse Rate 69 Respiratory Rate 15 Respiratory Effort Blood Pressure 134/72 H Blood Pressure Mean Pulse Ox 95 Oxygen Delivery Method Oxygen Flow Rate (L/min) Positive well nourished and well developed General Appearance ED: well developed and NAD HEENT Reports moist mucous membranes normocephalic and atraumatic Eyes PERRL, EOMs intact bilaterally and conjunctivae normal General Eye ED: Yes normal appearance of both eyes Neck no lymphadenopathy and supple General: Negative for tenderness Chest Wall Chest: Negative for tenderness Resp normal respiratory effort and normal air movement Effort and Inspection: symmetric chest movement; Negative for respiratory distress Cardio regular rate, regular rhythm and no murmurs Peripheral Pulses: pulses 2+ throughout GI normal to inspection, nondistended, normoactive bowel sounds and non-tender Palpation: Negative for guarding or rebound tenderness present Back/Spine no CVA tenderness and no thoracic nor lumbar tenderness Extremity normal to inspection Extremity Narrative: 1+ lower extremity edema, nontender. Pulses intact distally. General Extremety ED: Yes edema; Negative for tenderness General Extremity: edema Neuro oriented x3 and no sensory deficits noted Sensorium / Orientation: awake and alert Skin no rashes or lesions noted and no wounds Heart Score History: Slightly/Non-Suspicious ECG: Normal Age: >/= 65 years Risk Factors: 1 or 2 Risk Factors Troponin: </= Normal Limit Score: 3 MDM MDM MDM Narrative Medical decision making narrative: Patient symptom-free on evaluation. Aspirin ordered. Cardiac work-up initial troponin negative. Creatinine 1.27 hemoglobin 15.4. Two-view chest x-ray reviewed myself and read by radiology negative for any acute process. 1730: Patient remained symptom-free updated on results. Awaiting 2-hour troponin. 2-hour troponin also negative he remained symptom-free. He is discharged with follow-up with his PCP for further testing with return precautions. All questions were answered. Lab Data Attestation: I reviewed the patient's lab results. Labs: Laboratory Results - last 24 hr 05/14/22 05/14/22 05/14/22 16:11 16:11 18:18 WBC 11.4 H RBC 4.90 Hgb 15.4 Hct 48.0 MCV 98.0 H MCH 31.4 MCHC 32.1 RDW Std Deviation 50.4 H RDW Coeff of Foster 13.9 Plt Count 289 MPV 10.1 Immature Gran % (Auto) 0.400 Neut % (Auto) 67.7 Lymph % (Auto) 19.2 [place] % (Auto) 9.5 Eos % (Auto) 2.9 Baso % (Auto) 0.3 Absolute Neuts (auto) 7.7 Absolute Lymphs (auto) 2.20 Nucleated RBC % 0 Sodium 139 Potassium 3.6 Chloride 100 Carbon Dioxide 31.0 Anion Gap 8 BUN 14 Creatinine 1.27 Estim Creat Clear Calc 45.51 Est GFR (MDRD) Af Amer 70 Est GFR (MDRD) Non-Af 58 L BUN/Creatinine Ratio 11.0 Glucose 92 Calcium 8.6 Troponin I High Sens 34 33 Radiography Diagnostic Testing: Clinical Impression(s) from Imaging Studies Chest X-Ray 05/14/22 16:20 IMPRESSION: Normal x-ray examination of the chest. Electronically Signed: Damion Jones MD at 16:41 EST , Discharge Plan Triage Chief Complaint: Chest Pain ED Provider: Carlos Soto Dx/Rx/DC Orders Clinical Impression: Chest pain, History of COPD Instructions: ED Chest Pain, Uncertain Cause Primary Care Provider: Ron Garcia Referrals: Ron Garcia MD [Primary Care Provider] - 3-5 Days Activity Restrictions/Additional Instructions: Cardiac work-up negative. Follow your doctor further testing as an outpatient. Return if any worsening symptoms. Disposition Disposition: Home, Self Care Discharge Date/Time: 05/14/22 19:59
--- NOTE | 2022-05-14 16:15 | EKG12_ITS ---
Test Reason : CP Blood Pressure : / mmHG Vent. Rate : 079 BPM Atrial Rate : 079 BPM P-R Int : 204 ms QRS Dur : 096 ms QT Int : 362 ms P-R-T Axes : 074 036 064 degrees QTc Int : 415 ms Normal sinus rhythm Normal ECG Confirmed by ELEN CUEVA, ELEN ([id number]), editorial director NANCY FREEMAN ([id number]) on 05/19/2022 9:17:13 A M Referred By: Confirmed By:JAJA MYRICK MD
--- NOTE | 2022-05-14 16:20 | RAD_ITS ---
STUDY: X-RAY CHEST REASON FOR EXAM: Male, 82 years old. chest pain TECHNIQUE: PA and lateral views of the chest. COMPARISON: None. FINDINGS: The lungs are clear and expanded. There is no demonstrated pleural abnormality. Normal size heart. Normal mediastinum and juan david. Normal visualized pulmonary arteries. Normal visualized aortic arch and descending thoracic aorta. Normal visualized thoracic spine. Normal visualized ribs, clavicles, and shoulders. There is no demonstrated abnormality of the visualized soft tissue structures of the upper abdomen. RAD/Chest PA and Lateral IMPRESSION: Normal x-ray examination of the chest. Electronically Signed: Damion Jones MD at 16:41 EST ,
[2022-05-14 16:21] LABS: Absolute Neutrophil Count 7.7 X10^3/uL (2.0-7.7); Basophil# 0.04 X10^3/uL; Basophil% 0.3 % (0-1); Eosinophil# 0.33 X10^3/uL; Eosinophils% 2.9 % (0-5); Hemoglobin 15.4 g/dL (13.0-16.5); Lymphocyte % 19.2 % (19-41); Mean Corp Hgb Conc 32.1 g/dL (32-36); Mean Corpuscular Hgb 31.4 pg (27.0-32.0); Mean Platelet Vol. 10.1 fl (6.2-12.0); Monocyte# 1.09 X10^3/uL; Monocyte% 9.5 % (0-10); NRBC Flagged by Analyzer 0 % (0-5); Neutrophil # 7.73 X10^3/uL (2.7-7.7); Neutrophil % 67.7 % (47-70); Platelet Count 289 K/mm3 (150-450); RBC Distribution Width CV 13.9 % (11.6-14.6); RBC Distribution Width SD 50.4 fl (35.1-43.9); White Blood Count 11.4 K/mm3 (4.4-11.0)
[2022-05-14] MEDS: Aspirin 81 MG TAB.CHEW 324 MG PO (16:32)
[2022-05-14 16:38] LABS: Anion Gap 8 (5-15); BUN 14 mg/dL (7-18); Calcium,Total 8.6 mg/dL (8.5-10.1); Chloride 100 mmol/L (98-107); Creatinine, Serum 1.27 mg/dL (0.70-1.30); EST Glomerular Filtration Rate 58 mL/min (>60); Est Glom Filt Rate - Afr Amer 70 mL/min (>60); Estimated Creatinine Clearance 45.51 ml/min; Glucose 92 mg/dL (74-106); Potassium 3.6 mmol/L (3.5-5.1); Sodium Level 139 mmol/L (136-145); Troponin-I HS (w/2H Reflex) 34 pg/mL (3.0-78.0)
[2022-05-14 17:26] VITALS: BP 136/80; PULSE 77; RESP 16; O2SAT 96
[2022-05-14 18:18] LABS: Reflex Troponin-HS? (from REC) Y
[2022-05-14 18:45] LABS: Troponin-I HS 33 pg/mL (3.0-78.0)
[2022-05-14 19:19] VITALS: BP 131/74; PULSE 75; RESP 16; O2SAT 94
[2022-05-14 19:58] VITALS: BP 134/72; PULSE 69; RESP 15; O2SAT 95
== END 2022-05-14 19:59 | disposition home or self-care (01) ==
PROVIDERS: Emergency Provider Emergency Medicine; PCP Family Medicine; Visit Provider Emergency Medicine
DX: R07.9 Chest pain, unspecified (principal); J44.9 Chronic obstructive pulmonary disease, unspecified; I50.9 Heart failure, unspecified; Z87.891 Personal history of nicotine dependence; R60.0 Localized edema
CPT/HCPCS: 71046; 80048; 84484; 85025; 93005; 99284; A4216

== ENCOUNTER → 2022-07-23 | Outpatient (CLI) | payer MEDICARE, SELFPAY ==
--- NOTE | 2022-07-23 07:00 | CT_ITS ---
EXAM: CT HEAD WITHOUT INTRAVENOUS CONTRAST CLINICAL INDICATION: fall from standing height TECHNIQUE: Multiple axial images were obtained of the head without intravenous contrast. This CT exam was performed using one or more of the following dose reduction techniques: automated exposure control, adjustment of the mA and/or kV according to patient size, and/or use of iterative reconstruction technique. This report was created using [employer] report generation technology. RADIATION DOSE: Total DLP: 829.85 mGy-cm. COMPARISON: None. FINDINGS: BRAIN AND EXTRA-AXIAL SPACES: Findings of mild-moderate atrophy with prominence of the cortical sulci, basal cisterns, sylvian fissures and ventricles. Mild patchy chronic small vessel ischemic changes are noted within the deep white matter tracts. No intra- or extra-axial hemorrhage. No intracranial mass or mass effect. Posterior fossa structures are unremarkable except for mild cerebellar atrophy.. BONES/JOINTS: Unremarkable. No discrete lytic or blastic abnormalities. No linear or depressed skull fracture. SOFT TISSUES: Unremarkable. No scalp hematoma. VASCULATURE: Atherosclerotic vascular calcification is present. The middle cerebral arteries are not hyperdense. SINUSES: Unremarkable as visualized. Clear. MASTOID AIR CELLS: Unremarkable. Clear. ORBITS: There has been previous bilateral cataract surgery. CT/Brain/Head without Contrast IMPRESSION: 1. Atrophy with chronic small vessel ischemic changes. 2. No acute intracranial abnormality; no skull fracture or acute intracranial hemorrhage. Electronically Signed: Nacho Fritz MD at 7:44 EST ,
== END | disposition home or self-care (01) ==
PROVIDERS: PCP Family Medicine; Referring Provider Family Medicine; Visit Provider Family Medicine
DX: S09.90XA Unspecified injury of head, initial encounter (principal); W18.30XA Fall on same level, unspecified, initial encounter
CPT/HCPCS: 70450

== ENCOUNTER 2022-11-24 11:41 | Emergency (ER) | payer MEDICARE, SELFPAY ==
[2022-11-24] VITALS (9 sets, daily range): BP systolic 114–147; BP diastolic 49–100; PULSE 84–101; RESP 13–20; TEMP 36.2–36.4; O2SAT 94–99; BMI 27.7
--- NOTE | 2022-11-24 11:46 | CT_ITS ---
We are attempting to reach an attending provider to discuss findings. An addendum with communication details will be sent when the communication is complete. HISTORY: Neuro deficit, acute, stroke suspected. TECHNIQUE: Multiple axial images were obtained of the head without intravenous contrast. A radiation dose optimization technique was used for this scan. 242 images. COMPARISON: None. FINDINGS: BRAIN PARENCHYMA: Probable cortical hemorrhage in the inferior left frontal lobe and anterior left temporal lobe. Multiple foci and zones of low attenuation in the bilateral cerebral white matter compatible with chronic small vessel ischemic gliosis. CSF SPACES: Acute left frontoparietal subdural hematoma measuring up to 7 mm in thickness extending to the temporal and occipital regions. Acute left frontotemporal subarachnoid hemorrhage extending into the sylvian fissure. 6 mm thick acute right parafalcine subdural hematoma. Formal meter right frontal subdural hematoma with subarachnoid hemorrhage. Partial effacement of the left lateral ventricle with minimal 1 to 2 mm rightward midline shift. OTHER: Intact calvarium. No significant air fluid levels in the paranasal sinuses or mastoid air cells. Bilateral lens resections. CT/STROKE Brain/Head without Cont IMPRESSION: Acute bilateral subdural hematomas and subarachnoid hemorrhage with minimal rightward midline shift. Mild cortical hemorrhage in the left frontal and temporal lobes. Chronic involutional and white matter changes. Electronically Signed: Bev Bustamante MD at 12:09 EDT ,
--- NOTE | 2022-11-24 11:46 | EKG12_ITS ---
Test Reason : NEURO Blood Pressure : / mmHG Vent. Rate : 079 BPM Atrial Rate : 079 BPM P-R Int : 220 ms QRS Dur : 104 ms QT Int : 372 ms P-R-T Axes : 075 055 063 degrees QTc Int : 426 ms Sinus rhythm with 1st degree A-V block Otherwise normal ECG Confirmed by MARY CUEVA, BEKAH ([id number]), general expeditor NANCY FREEMAN ([id number]) on 11/26/2022 8:51:33 AM Referred By: VIKRAM Confirmed By:BEKAH HERNANDEZ MD
[2022-11-24] MEDS: hydrALAZINE 20 MG/ML Vial IV (11:56)
[2022-11-24 11:58] LABS: Absolute Lymphocyte Count 2.02 X10^3/uL (0.83-4.51); Absolute Neutrophil Count 10.4 X10^3/uL (2.0-7.7); Basophil# 0.03 X10^3/uL; Basophil% 0.2 % (0-1); Eosinophils% 0.7 % (0-5); Hematocrit 38.7 % (40-54); Hemoglobin 12.7 g/dL (13.0-16.5); Lymphocyte # 2.02 X10^3/ul (0.83-4.51); Lymphocyte % 14.7 % (19-41); Mean Corp Hgb Conc 32.8 g/dL (32-36); Mean Corpuscular Hgb 31.7 pg (27.0-32.0); Mean Corpuscular Volume 96.5 fL (80-94); Mean Platelet Vol. 10.5 fl (6.2-12.0); Monocyte# 1.09 X10^3/uL; Monocyte% 7.9 % (0-10); NRBC Flagged by Analyzer 0 % (0-5); Neutrophil # 10.38 X10^3/uL (2.7-7.7); Neutrophil % 75.8 % (47-70); Platelet Count 235 K/mm3 (150-450); RBC Distribution Width CV 13.1 % (11.6-14.6); RBC Distribution Width SD 46.9 fl (35.1-43.9); Red Blood Count 4.01 M/mm3 (4.6-6.2); White Blood Count 13.7 K/mm3 (4.4-11.0)
--- NOTE | 2022-11-24 12:00 | NURSING ---
[facility] CALLED WITH ACCEPTANCE AND SET UP TRANSPORT WITH [facility]-- ETA GIVEN [id number]
--- NOTE | 2022-11-24 12:03 | EDS_ITS ---
HPI History of Present Illness Chief Complaint: Stroke Alert Informant: spouse/S.O. and EMS Narrative Narrative: Patient presents as a stroke alert with EMS. EMS notes they were called to the patient's home about an hour and a half ago secondary to a syncopal episode. states that he was sitting at the end of the table. He got up and passed out falling onto his back. He was unresponsive for approximately 3 minutes and then came around at the time squad arrived. Squad says he was alert and appropriate. Vital signs were unremarkable and he had no complaints. He did not want to go to the hospital. Family states after the squad left patient was out in the yard walking around with family. He went to the garage to get something and was found on the garage floor approximately 15 minutes later. He has diminished level of consciousness at this time. He will spontaneously move all 4 extremities. Family states he has had diarrhea the last couple days and has not felt well. He has not been eating much. PFSH PFS Medical History Allergic rhinitis BPH w urinary obs/LUTS Congestive heart failure (CHF) COPD (chronic obstructive pulmonary disease) History of tobacco use Lung nodule < 6cm on CT Thoracic aneurysm without mention of rupture Vitamin D deficiency Allergy/AdvReac Type Severity Reaction Status Date / Time No Known Allergies Allergy Verified 11/24/22 12:25 Family History Father Emphysema lung Mother old age Surgical History Hx of appendectomy Social History Smoking Status: Former smoker ROS ROS ED Review of Systems ROS Unobtainable: due to mental condition EXAM Physical Exam Const Vital Signs: 11/24/22 11:41 11/24/22 11:44 11/24/22 11:46 Temperature 97.2 F L Temperature Source Temporal Pulse Rate 85 88 Respiratory Rate 17 15 Blood Pressure 144/100 H 147/69 H Blood Pressure Mean 114 95 Pulse Ox 96 98 97 Oxygen Delivery Method Nasal Cannula Nasal Cannula Nasal Cannula Oxygen Flow Rate (L/min) 2 2 2 11/24/22 11:57 11/24/22 11:46 11/24/22 11:57 Temperature Temperature Source Pulse Rate 86 91 Respiratory Rate 16 17 Blood Pressure 147/69 H 142/74 H Blood Pressure Mean 95 96 Pulse Ox 98 94 99 Oxygen Delivery Method Nasal Cannula Nasal Cannula Nasal Cannula Oxygen Flow Rate (L/min) 4 2 4 11/24/22 12:12 11/24/22 11:41 11/24/22 12:30 Temperature 97.2 F L Temperature Source Temporal Pulse Rate 92 84 98 Respiratory Rate 13 16 19 H Blood Pressure 129/57 H 144/100 H 122/49 H Blood Pressure Mean 81 114 73 Pulse Ox 99 97 98 Oxygen Delivery Method Nasal Cannula Nasal Cannula Nasal Cannula Oxygen Flow Rate (L/min) 4 2 4 11/24/22 12:55 11/24/22 12:44 11/24/22 12:45 Temperature 97.6 F L Temperature Source Pulse Rate 101 H 101 H 101 H Respiratory Rate 20 H 20 H 20 H Blood Pressure 114/72 114/72 114/72 Blood Pressure Mean 86 86 86 Pulse Ox 98 98 98 Oxygen Delivery Method Nasal Cannula Nasal Cannula Oxygen Flow Rate (L/min) 2 4 Positive well nourished and well developed General Appearance ED: well developed Eyes Eyes Narrative: Pupils 2 to 3 mm and symmetric. Neck no lymphadenopathy Chest Wall inspection of chest normal and palpation of chest normal Resp normal respiratory effort and clear to auscultation bilaterally Cardio Rate: regular rate Rhythm: regular rhythm GI soft to palpation Neuro Neuro Narrative: Patient resting with eyes closed will open eyes to command. He will spontaneously move all 4 extremities. He is not verbally answering questions at this time. He is protecting his airway. MDM MDM MDM Narrative Medical decision making narrative: Patient sent immediately to CT scan. Labwork obtained to evaluate for leukocytosis, anemia, and electrolyte derangement. EKG obtained to evaluate for cardiac arrhythmia/ischemia. I was talking with family and getting further history when patient returned from CAT scan. I notified by nursing staff that CT scan did reveal evidence of a bleed. On my review of images it appears the patient has a subarachnoid bleed. Radiology did call me with results. There are acute bilateral subdural hematomas as well as subarachnoid hemorrhage. There is minimal rightward midline shift. There is mild cortical hemorrhage in the left frontal and temporal lobes. Blood pressure at this time is 147/69 and he is given a dose of hydralazine. I have spoken with the hemorrhagic stroke line at [facility] patient has been accepted in transfer. Lab Data Labs: Laboratory Results - last 24 hr 11/24/22 11/24/22 11/24/22 11:45 11:45 11:45 WBC 13.7 H RBC 4.01 L Hgb 12.7 L Hct 38.7 L MCV 96.5 H MCH 31.7 MCHC 32.8 RDW Std Deviation 46.9 H RDW Coeff of Foster 13.1 Plt Count 235 MPV 10.5 Immature Gran % (Auto) 0.700 Neut % (Auto) 75.8 H Lymph % (Auto) 14.7 L Rooks % (Auto) 7.9 Eos % (Auto) 0.7 Baso % (Auto) 0.2 Absolute Neuts (auto) 10.4 H Absolute Lymphs (auto) 2.02 Nucleated RBC % 0 PT 14.3 INR 1.1 APTT 30.4 Sodium 139 Potassium 3.4 L Chloride 100 Carbon Dioxide 32.0 Anion Gap 7 BUN 17 Creatinine 1.13 Estim Creat Clear Calc 51.14 Est GFR (MDRD) Af Amer 80 Est GFR (MDRD) Non-Af 66 BUN/Creatinine Ratio 15.0 Glucose 123 H Calcium 9.0 Troponin I High Sens 21 POC Glucose 11/24/22 11:58 WBC RBC Hgb Hct MCV MCH MCHC RDW Std Deviation RDW Coeff of Foster Plt Count MPV Immature Gran % (Auto) Neut % (Auto) Lymph % (Auto) Rooks % (Auto) Eos % (Auto) Baso % (Auto) Absolute Neuts (auto) Absolute Lymphs (auto) Nucleated RBC % PT INR APTT Sodium Potassium Chloride Carbon Dioxide Anion Gap BUN Creatinine Estim Creat Clear Calc Est GFR (MDRD) Af Amer Est GFR (MDRD) Non-Af BUN/Creatinine Ratio Glucose Calcium Troponin I High Sens POC Glucose 120 H Radiography Diagnostic Testing: Clinical Impression(s) from Imaging Studies Brain CT 11/24/22 11:46 IMPRESSION: Acute bilateral subdural hematomas and subarachnoid hemorrhage with minimal rightward midline shift. Mild cortical hemorrhage in the left frontal and temporal lobes. Chronic involutional and white matter changes. Electronically Signed: Bev Bustamante MD at 12:09 EDT , ADDENDUM: 11/24/22 1217 IMPRESSION: Acute bilateral subdural hematomas and subarachnoid hemorrhage with minimal rightward midline shift. Mild cortical hemorrhage in the left frontal and temporal lobes. Chronic involutional and white matter changes. N.B. : The above Results were Read Back by Bev Bustamante MD to Kathleen Cobb MD, and understanding confirmed on 11/24/2022 12:10:36 (ET). Electronically Signed: Bev Bustamante MD at 12:09 EDT , EKG Initial EKG: Attestation: I personally reviewed and interpreted this EKG as follows: Interpretation: Sinus Rhythm (Sinus at 79 bpm with a first-degree AV block. No acute ischemia. Subtle ST depression noted in V3 through V6.) Management Discussion w/another healthcare provider: Doctor Of Dental Surgery and Radiologist Critical Care Time Critical Care Time: Yes Critical care time (excluding procedures): 30-74 minutes (35 minutes), Discussing w/Patient &/or Family/Configuration Release Manager, Discussing w/Consultants, Arranging Admission or Transfer and Performing Direct Patient Care at Bedside Discharge Plan Triage Chief Complaint: Stroke Alert ED Provider: Kathleen Cobb Dx/Rx/DC Orders Clinical Impression: Hemorrhagic stroke Primary Care Provider: Ron Garcia Referrals: Ron Garcia MD [Primary Care Provider] - Disposition Disposition: Acute Care Hospital Discharge Location: [facility] Discharge Date/Time: 11/24/22 12:58
[2022-11-24 12:10] LABS: International Normalized Ratio 1.1; Prothrombin Time (Protime)PT. 14.3 SECONDS (11.7-14.9)
[2022-11-24 12:11] LABS: Partial Thromboplast Time 30.4 Seconds (24.1-36.2)
[2022-11-24 12:21] LABS: Bedside Glucose 120 mg/dL (74-106)
[2022-11-24 12:32] LABS: Anion Gap 7 (5-15); BUN 17 mg/dL (7-18); Chloride 100 mmol/L (98-107); Creatinine, Serum 1.13 mg/dL (0.70-1.30); EST Glomerular Filtration Rate 66 mL/min (>60); Est Glom Filt Rate - Afr Amer 80 mL/min (>60); Estimated Creatinine Clearance 51.14 ml/min; Glucose 123 mg/dL (74-106); Potassium 3.4 mmol/L (3.5-5.1); Sodium Level 139 mmol/L (136-145); Troponin-I HS 21 pg/mL (3.0-78.0)
--- NOTE | 2022-11-24 12:54 | CM.ED ---
Social Work SW introduced self and role. SW provided support to patient's and daughter present in patient's room and daughter in waiting room. Pt is a stroke alert now awaiting transport. Desiree Lester FOREST AIDE, TUBE CARRIER
== END 2022-11-24 12:58 | disposition short-term general hospital (02) ==
PROVIDERS: Emergency Provider Emergency Medicine; PCP Family Medicine; Visit Provider Emergency Medicine
DX: I60.9 Nontraumatic subarachnoid hemorrhage, unspecified (principal); Z87.891 Personal history of nicotine dependence; Z90.49 Acquired absence of other specified parts of digestive tract
CPT/HCPCS: 70450; 80048; 82962; 84484; 85025; 85610; 85730; 93005; 96374; 99285; A4216